=== PATIENT | male | born 1940 | race Caucasian/White ===

== ENCOUNTER 2018-09-07 15:27 | Inpatient (IN) ==
[2018-09-07] MEDS ORDERED: ASPIRIN ONE (15:48)
[2018-09-07] MEDS ORDERED: NITROGLYCERIN TOP ONE (15:58)
[2018-09-07] MEDS ORDERED: ASPIRIN PO ONE (16:06)
[2018-09-07 16:24] LABS: BASO# 0.02 X1000 (0.0-0.2); BASO% 0.2 % (0.0-0.8); EOS% 2.1 % (0.0-10.0); HEMATOCRIT 35.9 % (42.0-52.0); HEMOGLOBIN 11.7 g/dL (14.0-18.0); IMM GRAN# 0.01 X1000 (0.0-0.04); IMM GRAN% 0.1 % (0.0-0.5); LYMPH# 1.65 X1000 (1.2-3.4); LYMPH% 17.7 % (20.5-51.1); MCH 32.1 PG (27-31); MCHC 32.6 g/dL (33-37); MCV 98.4 FL (81-99); MONO# 1.14 X1000 (0.11-0.59); MONO% 12.2 % (1.7-9.3); MPV 9.6 FL (7.4-10.4); NEUT# 6.29 X1000 (1.4-6.5); NEUT% 67.7 % (42.2-75.2); PLT 281 X1000 (130-400); RBC 3.65 XMIL (4.7-6.1); RDW 14.7 % (11.5-14.5); WBC 9.31 X1000 (4.8-10.8)
[2018-09-07 16:34] LABS: INR 1.15; PROTIME 15.3 Seconds (11.0-16.0)
[2018-09-07 16:35] LABS: PTT 41.6 Seconds (22.3-41.8)
--- NOTE | 2018-09-07 16:42 | Diag Imaging Result Doc PS360 ---
EXAM: CHEST-PORTABLE - 09/07/2018 HISTORY: cp TECHNIQUE: Portable chest COMPARISON: 01/23/2017 FINDINGS: Heart size appears upper normal. There are sternal wires from previous surgery and transvenous cardiac pacemaker again seen. There is apparent interstitial fibrosis similar to prior. There is no dense consolidation, gross pulmonary edema, pleural effusion, or pneumothorax identified. IMPRESSION: Apparent interstitial fibrosis similar to prior. No other discrete acute changes. Electronically signed by Avery Hill 09/07/2018 4:40 PM
[2018-09-07 16:50] LABS: AGAP 11; ALBUMIN 3.7 g/dL (3.5-5.0); ALKALINE PHOSPHATASE 151 U/L (32-122); BUN 10 mg/dL (8-22); CALCIUM 9.3 mg/dL (8.8-10.2); CHLORIDE 107 mmol/L (98-107); CK PROFILE 173 U/L (24-204); COSMO 283; CREATININE 0.9 mg/dL (0.7-1.2); ESTIMATED GFR > 60; GLUCOSE 115 mg/dL (70-104); GOT 29 U/L (10-34); GPT 19 U/L (10-44); SODIUM 142 mmol/L (136-145); TCO2 25 mmol/L (25-35); TOTAL PROTEIN 6.8 g/dL (6.3-8.3)
--- NOTE | 2018-09-07 17:39 | EKG Report ---
Test Performed on : 09/07/2018 3:36:33 PM Test Reason : cp Blood Pressure : / mmHG Vent. Rate : 082 BPM Atrial Rate : 082 BPM P-R Int : 174 ms QRS Dur : 180 ms QT Int : 452 ms P-R-T Axes : 081 -52 113 degrees QTc Int : 528 ms Atrial-sensed ventricular-paced rhythm Abnormal ECG When compared with ECG of 23-JAN-2017 15:55, Vent. rate has increased BY 11 BPM Unconfirmed Result
--- NOTE | 2018-09-07 18:02 | PROVIDER DOCUMENTATION ---
This chart was entered by Galina Parra Scribe, acting as scribe for Christiano Conley MD. HPI-Chest Pain - General Chief Complaint: Chest Pain Stated Complaint: CHEST PAIN Time Seen by Provider: 09/07/18 15:46 Source: patient Allergies/Adverse Reactions: Patient Allergies Allergy/AdvReac Type Severity Reaction Status Date / Time No Known Allergies Allergy Verified 09/07/18 15:49 Home Medications: Home Medication List Medication Instructions Recorded Confirmed Last Taken Type Aspirin [Ecotrin] 81 mg PO DAILY 11/01/13 03/15/17 03/05/14 History Atorvastatin Calcium [Lipitor] 80 mg PO HS 11/01/13 03/15/17 03/05/14 History Isosorbide Mononitrate [Isosorbide 90 mg PO DAILY 11/01/13 04/28/17 03/05/14 History Mononitrate ER] Levothyroxine [Synthroid] 50 microgm PO DAILY 11/01/13 03/15/17 03/05/14 History Furosemide [Lasix] 80 mg PO DAILY 01/23/17 03/15/17 Unknown History Metoprolol Succinate E.r. [Toprol 1 tab PO DAILY 01/23/17 03/15/17 Unknown History Xl] Nitroglycerin [Nitrostat] 1 tab SL Q5M PRN PRN 01/23/17 03/15/17 01/23/17 12:30 History 0.4 Ticagrelor [Brilinta] 90 mg PO BID 03/15/17 03/15/17 Unknown History Ipratropium/Albuterol INH 1 inh IH Q4-6H PRN PRN 03/24/17 03/24/17 Unknown History [Combivent Respimat Inhaler] - History of Present Illness-CP Nature of Presenting Problem: 77 y/o male presents to ED with constant, heavy sternal chest pain, SOB, and nausea onset 3 hours ago. Pt reports he took 3 nitro at home and now his pain is better. Pt states he has had this pain almost every day for months. Pt is alert and oriented. Location: reports: other (sternal) Chest Pain Radiation: reports: no radiation Quality of Pain: reports: pressure Severity in ED: moderate Onset/Duration: 4-6 hours ago Timing: still present, improving Context/Activities at Onset: reports: none Modifying Factors: improves with: other medication (nitro) Associated Symptoms: reports: nausea, shortness of breath Nitro Today/Relief: 0.4 mg x 3, provided at home, mild relief Aspirin Treatment Today: 325 mg x 1, provided by ED Prior Chest Pain/Cardiac Workup: reports: angina, cardiac cath Similar Symptoms Previously?: Yes Recently Seen Here or By Another Healthcare Provider: No Review of Systems - Adult - REVIEW OF SYSTEMS - ADULT Constitutional: denies: chills, fever Eyes: reports: no symptoms reported Ears, Nose, Mouth & Throat: reports: no symptoms reported Cardiovascular: reports: chest pain. denies: palpitations Respiratory: reports: shortness of breath. denies: cough Gastrointestinal: reports: nausea. denies: abdominal pain, diarrhea, vomiting Genitourinary: reports: no symptoms reported Musculoskeletal: denies: back pain, joint pain Integumentary: reports: no symptoms reported Neurological: denies: dizziness/vertigo, seizure Psychiatric: reports: no symptoms reported Endocrine: reports: no symptoms reported Hematologic/Lymphatic: reports: no symptoms reported Allergic/Immunologic: reports: no symptoms reported All Other Systems: Reviewed and Negative Past History - Adult - PAST MEDICAL HISTORY-ADULT Review of Records: reports: Old Records Reviewed, Nursing Assessment Review, Medications Reviewed 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") Endocrine/Immune: reports: thyroid disorder (hypothyroid) Other Conditions: reports: denies history - PRIOR SURGERIES/PROCEDURES Surgical/Procedure History: reports: CABG, cholecystectomy, cardiac stent, pacemaker, other (bypass, carotid, open heart) - PRIOR HOSPITALIZATIONS Prior Hospitalizations: reports: for other non-related - IMMUNIZATION STATUS Childhood Immunizations: See Nurse Assessment Flu Vaccine: See Nurse Assessment - FAMILY HISTORY Family History: reviewed, not pertinent - SOCIAL HISTORY Smoking: quit greater than 1 year Substance Use: none/never Alcohol Use Frequency: never Living Situation: family Physical Exam-General - PHYSICAL EXAM-ADULT Initial Vital Signs Reviewed: Yes - CONSTITUTIONAL General Appearance: appears well, alert, no apparent distress - EYES Eyes: PERRL/EOMI, pink conjunctivae - HEAD, EARS, NOSE, MOUTH & THROAT HENMT: normocephalic/atraumatic, moist mucous membranes, normal ENT inspection - NECK Neck: non-tender, full range of motion - RESPIRATORY Respiratory: chest non-tender, lungs clear, normal breath sounds - CARDIOVASCULAR Cardiovascular: normal peripheral pulses, regular rate, rhythm - GASTROINTESTINAL (ABDOMEN) Abdominal Exam: normal bowel sounds, non tender, soft - MUSCULOSKELETAL Back Exam: normal inspection, no CVA tenderness Extremity: normal range of motion, non-tender, normal gait - SKIN Integumentary: normal color, warm/dry - NEUROLOGIC Neurologic: grossly normal - PSYCHIATRIC Psych/Mental Status: normal mood/affect, normal thought content, normal thought process Progress - PLAN OF CARE/RESULTS Progress/Plan/Lab Results: Vital Signs - 8 hr 09/07/18 15:30 09/07/18 17:51 Temperature 98.2 F Pulse Rate 83 65 Respiratory Rate 20 18 Blood Pressure 103/65 106/68 O2 Sat by Pulse Oximetry 92 L 93 L Laboratory Results - last 24 hr 09/07/18 09/07/18 09/07/18 16:00 16:00 16:00 WBC 9.31 RBC 3.65 L Hgb 11.7 L Hct 35.9 L MCV 98.4 MCH 32.1 H MCHC 32.6 L RDW Std Deviation 14.7 H Plt Count 281 MPV 9.6 Immature Gran % (Auto) 0.1 Neut % (Auto) 67.7 Lymph % (Auto) 17.7 L Andrew % (Auto) 12.2 H Eos % (Auto) 2.1 Baso % (Auto) 0.2 Immature Gran # (Auto) 0.01 Neut # (Auto) 6.29 Lymph # (Auto) 1.65 Andrew # (Auto) 1.14 H Eos # (Auto) 0.20 Baso # (Auto) 0.02 PT INR PTT (Actin FS) Sodium 142 Potassium 4.0 Chloride 107 Carbon Dioxide 25 Anion Gap 11 BUN 10 Creatinine 0.9 Estimated GFR/1.73 m2 > 60 BUN/Creatinine Ratio 11 Glucose 115 H Calculated Osmolality 283 Calcium 9.3 Magnesium 2.0 Total Bilirubin 0.90 AST 29 ALT 19 Alkaline Phosphatase 151 H Creatine Kinase 173 Troponin T Wuz-G-Duaozapfecr Pept 1006 H Total Protein 6.8 Albumin 3.7 Globulin 3.0 Albumin/Globulin Ratio 1.0 09/07/18 09/07/18 09/07/18 16:00 16:00 17:30 WBC RBC Hgb Hct MCV MCH MCHC RDW Std Deviation Plt Count MPV Immature Gran % (Auto) Neut % (Auto) Lymph % (Auto) Andrew % (Auto) Eos % (Auto) Baso % (Auto) Immature Gran # (Auto) Neut # (Auto) Lymph # (Auto) Andrew # (Auto) Eos # (Auto) Baso # (Auto) PT 15.3 INR 1.15 PTT (Actin FS) 41.6 Sodium Potassium Chloride Carbon Dioxide Anion Gap BUN Creatinine Estimated GFR/1.73 m2 BUN/Creatinine Ratio Glucose Calculated Osmolality Calcium Magnesium Total Bilirubin AST ALT Alkaline Phosphatase Creatine Kinase Troponin T 0.062 0.193 H D Zvb-U-Dsxodzxidec Pept Total Protein Albumin Globulin Albumin/Globulin Ratio Orders Category Date Time Status Oxygen Therapy- ED Nursing DIRECTED Care 09/07/18 16:08 Active Saline Loc NOW Care 09/07/18 15:57 Active CHEST-PORTABLE [RAD] Stat Exams 09/07/18 15:58 Completed CBC WITH ELECTRONIC DIFF [HEME] Stat Lab 09/07/18 16:00 Completed CK PROFILE [SP CHEM] Stat Lab 09/07/18 16:00 Completed COMPREHENSIVE METABOLIC PANEL [CHEM] Stat Lab 09/07/18 16:00 Completed MAGNESIUM [CHEM] Stat Lab 09/07/18 16:00 Completed PRO B-NATRIURETIC PEPTIDE Stat Lab 09/07/18 16:00 Completed PROTIME WITH INR [COAG] Stat Lab 09/07/18 16:00 Completed PTT [COAG] Stat Lab 09/07/18 16:00 Completed TROPONIN T Stat Lab 09/07/18 16:00 Completed TROPONIN T Stat Lab 09/07/18 17:30 Completed Aspirin Med 09/07/18 15:48 Discontinued 325 mg .ROUTE .STK-MED ONE Aspirin Med 09/07/18 16:06 Discontinued 325 mg PO NOW ONE Enoxaparin 1 mg/kg [Lovenox 1 mg/kg] Med 09/07/18 18:26 Discontinued 1 each SUBQ NOW ONE Nitroglycerin Med 09/07/18 15:58 Discontinued 1 inch TOP NOW ONE EKG [EKG] Stat Ther 09/07/18 15:57 Draft EKG [EKG] Stat Ther 09/07/18 17:04 Ordered Transfer/Admit Order [TRANSFER] Routine Transfer 09/07/18 18:32 Ordered HEART SCORE OF 8. [id number] - HIGH RISK of MACE, needs admit Result Diagrams: 09/07/18 16:00 09/07/18 16:00 - REASSESSMENT Reassessment #1 Time Reassessed: 17:12 Status: improving (Chest pain free at this time. Will repeat troponin and call cardiology prior to admit or transfer.) - EKG 1 Time of EKG reading by physician:: 15:36 EKG Read and Signed by:: Christiano Conley EKG Interpretation (*Must complete 3 of following elements*): Abnormal Rate: 82 Rhythm: Atrial-sensed ventricular-paced rhythm [place]: normal QRS: other (wide complex) [place] Interval: normal ST Wave: normal 2 Time of EKG reading by physician:: 17:37 EKG Read and Signed by:: Christiano Conley EKG Interpretation (*Must complete 3 of following elements*): Abnormal Rate: 63 Rhythm: Atrial-sensed ventricular-paced rhythm [place]: normal QRS: normal [place] Interval: normal ST Wave: normal Prior EKG Comparison: unchanged from prior - XRAY 1 XRAY Study: Chest Impression: Abnormal (FINDINGS: Heart size appears upper normal. There are sternal wires from previous surgery and transvenous cardiac pacemaker again seen. There is apparent interstitial fibrosis similar to prior. There is no dense consolidation, gross pulmonary edema, pleural effusion, or pneumothorax identified. IMPRESSION: Apparent interstitial fibrosis similar to prior. No other discrete acute changes. Electronically signed by Avery Hill 2018 4:40 PM) - CONSULTS/PCP/HOSPITALIST Notification #1 *Consult/PCP/Hospitalist*: Blaise Motley Time Discussed: 18:33 (give lovenox, hold here and tranfer tomorrow if a bed opens) Reason/Comments: Cebolla is currently on divert for us Consult Disposition: other #2 Consult: stanley Time Discussed: 18:34 Consult Disposition: Will see in ED Departure - Departure Date of Disposition Decision: 09/07/18 Time of Disposition Decision: 18:34 DIAGNOSIS: NSTEMI, initial episode of care Disposition: ADMITTED INPATIENT 09 Certified Medical Emergency: Emergent Condition: Fair Referrals and Follow-Ups: Bubba Shepard MD [Primary Care Provider] - - Critical Care Note This patient required my direct & personal management of CC.: Yes Total Time (mins): 45 Critical Care Statement: This patient required my direct personal management to treat or rule out processes, the absence of which, could potentiallly result in sudden, clinically significant life or limb threatening deterioration. Attestation - Physician/ YAKELIN Attestation Patient care was provided by Advanced Practice Provider:: No The physician spent face to face time with patient:: Yes Advanced Practice Provider documentation review:: Supervising physician onsite and consulted in the evaluation and care of this patient. The physician did have a face to face encounter with the patient. This chart was documented by the indicated scribe, (Galina Parra, Scrshad) and accurately reflects the services I performed and decisions made by me, Christiano Conley MD, as attested by the provider's signature.
[2018-09-07] MEDS ORDERED: LOVENOX 1 MG/KG SUBQ ONE (18:26)
[2018-09-07] MEDS ORDERED: LOVENOX ONE (18:35)
[2018-09-07] MEDS ORDERED: BRILINTA PO SCH (22:31)
[2018-09-07] MEDS ORDERED: ZOFRAN IV PRN (22:31)
[2018-09-07] MEDS ORDERED: NS 1,000 ML IV ONE (22:31)
[2018-09-07] MEDS ORDERED: TYLENOL PO PRN (22:31)
[2018-09-07] MEDS ORDERED: LIPITOR PO SCH (22:31)
[2018-09-07] MEDS ORDERED: LOVENOX 1 MG/KG SUBQ SCH (22:31)
[2018-09-07] MEDS: NITROGLYCERIN TOP SCH (23:19)
[2018-09-08] MEDS: MORPHINE IV PRN ×2 (00:26→06:42)
--- NOTE | 2018-09-08 05:31 | CARDIOLOGY CONSULTATION ---
DATE: 09/07/2018 INDICATIONS: Chest pain. HISTORY OF PRESENT ILLNESS: Mr. Arreguin is a 77-year-old gentleman with a history of coronary artery disease normally followed by Dr. Shepard in [place]. He had last seen Dr. Shepard in July and at that time was recommended for a heart catheterization based on his continued symptoms. The patient takes care of his , who is somewhat bedbound, and so was unable to do so. He presented for evaluation of chest pain that began around 1 p.m. today while he was in the grocery store. It persisted for around 3 hours and was a pressure heaviness in the mid chest that hurt quite a bit. It was associated with nausea, but no vomiting. He was short of breath with the episode as well. This is consistent with previous episodes. No other provokers or palliators. PAST MEDICAL HISTORY: Significant for: 1. Coronary disease with coronary bypass. 2. Hyperlipidemia. 3. Hypertension. SOCIAL HISTORY: He does not smoke. He is . FAMILY HISTORY: Hypertension. REVIEW OF SYSTEMS: A 10-system review of systems is negative except for those things mentioned in HPI. PHYSICAL EXAMINATION: Vital signs: He is afebrile. Heart rate is 89, blood pressure 107/79. General: He is in no acute distress. He is not currently having pain. HEENT: Oropharynx is moist. Normal dentition. Eye examination with pink conjunctivae and white sclerae. Neck: Neck examination demonstrated bilateral carotid bruits. No obvious thyromegaly or thyroid tenderness. Cardiovascular: He is in a regular rate and rhythm. He has no murmurs, no S3. No lower extremity edema. Chest: Exam is clear bilaterally. He has no increased work of breathing. Abdomen: Soft, nontender, nondistended. No obvious organomegaly. Skin Exam: Warm and dry throughout without any rashes. Neurological: Nonfocal, nonlateralizing. Psychiatric: Alert, oriented, pleasant. Normal mood and affect. PERTINENT DATA: He had an EKG checked this hospitalization, which demonstrated a baseline atrial fibrillation. He appeared to be in sinus rhythm. He has a known left bundle. Chest x-ray demonstrated interstitial fibrosis. No acute changes from old. White count 9.3, hematocrit 35, platelet count 281,000. INR 1.1. Sodium 142, potassium 4, BUN 10, creatinine 0.9. ProBNP is 1006. Troponin 0.193. ASSESSMENT: Mr. Arreguin is a 77-year-old gentleman with history of coronary disease. PLAN: He appears to have had a [id number]-BE-[id number] DC. He is pain-free presently. I would continue with the treatment as you have it, with Lovenox, aspirin, and nitroglycerin. He had re-initiation of his Brilinta as well as statin therapy. In addition, I would try to re-initiate his beta- raisa. I would recommend transfer to a PCI facility in the morning. He certainly seems stable at present, but if he demonstrates any sort of instability overnight, would recommend emergent transfer. cc: MD Sean Moy MD
[2018-09-08] MEDS ORDERED: LOVENOX SUBQ SCH (06:00)
[2018-09-08] MEDS: NITROGLYCERIN TOP SCH (06:42)
[2018-09-08] MEDS ORDERED: TOPROL XL PO SCH (09:00)
[2018-09-08] MEDS ORDERED: ASPIRIN EC PO SCH (09:00)
[2018-09-08] MEDS ORDERED: NITROGLYCERIN SL PRN (10:06)
[2018-09-08] MEDS ORDERED: DUONEB (A & A) INH PRN (10:15)
[2018-09-08 10:39] VITALS: BP 100/63
--- NOTE | 2018-09-08 11:40 | HISTORY AND PHYSICAL ---
ADMISSION DIAGNOSIS: Chest pain. HISTORY OF PRESENT ILLNESS: Pt was seen on the evening of 09/07/18 in ER .This is a 77-year-old male with known CAD, status post CABG stents. His last intervention I think was over a year ago. He states starting around 1 p.m. he had substernal chest pain radiating to his left arm, back and into his right shoulder, associated with shortness of breath. No nausea. Not completely similar to previous events, but was still apparent. He came in for evaluation. Has improved with nitroglycerin. Workup in the ER. EKG showed, I do not think any acute changes. Actually, he is ventricularly paced and therefore EKG is not interpretable in the setting of ischemic changes. Chest x-ray showed interstitial fibrosis. When I saw him in the evening around 1900, he was chest pain free. However, his troponin was elevated. His first one was not. His second one about an hour and a half later was with a normal CK and then his troponin continued to increase. The patient was felt to have a non- STEMI. Cardiology was consulted, Dr. Blaise Motley. However, because of bed availability, there were no beds at [facility]. The patient had to be monitored here until a bed was available. PAST MEDICAL HISTORY: 1. Again CABG. That was about 4-5 years ago. 2. He has also had PCI, which was done about a year ago. 3. Hyperlipidemia. 4. Hypertension. 5. Hypothyroid. 6. Presumably atrial fibrillation. He is on Eliquis. PAST SURGICAL HISTORY: The CABG and PCI. No other major things. SOCIAL HISTORY: No smoking. . Family is involved. He is retired from construction work. He has a remote history of smoking. I think he quit 10 or 12 years ago. FAMILY HISTORY: Hypertension, but I want to say he had CAD. His father had CAD , but later after his 60s. ALLERGIES: No known drug allergies. MEDICATIONS: He currently takes nitroglycerin p.r.n., Eliquis 5 b.i.d., aspirin 81 daily, Lipitor 80 daily, Lasix 80 daily. Atrovent, Imdur 90 daily, Synthroid 50 daily, Toprol- XL 50 daily, Klor- Con 20 daily, and Brilinta 90 b.i.d. REVIEW OF SYSTEMS: General: No weight loss, appetite change. Cardiovascular : As described. Pulmonary: As described. GI: No nausea, vomiting, diarrhea. No bleeding. No hematochezia, no melena. : No dysuria. No urinary retention. Otherwise negative times a 10 point review of systems. PHYSICAL EXAMINATION: VITAL SIGNS: Blood pressure was 107/79, heart rate 89, respiratory rate 18, temperature 97.9, 97% on 2 L. GENERAL: Well-developed male in no acute distress. HEENT: Head exam was normocephalic, atraumatic. Eye exam: Pupils equal, round , reactive to light. Extraocular movements are intact. Ear, nose and throat exam: Moist mucous membranes. NECK: Supple. CARDIOVASCULAR: Regular rate and rhythm. No murmurs, gallops, or rubs. PULMONARY: Exam, bilateral breath sounds clear to auscultation. GI: Was soft, nontender, nondistended. Bowel sounds are positive. EXTREMITY EXAM: No clubbing or cyanosis. LYMPHATIC EXAM: No peripheral edema. NEUROLOGICAL: Nonfocal. MUSCULOSKELETAL: 4/5 in all 4 extremities. SKIN EXAM: Was warm. No rashes noted. LABORATORY DATA: Hemoglobin and hematocrit 11 and 35. Platelets were normal. Coag profile normal. Chemistries were okay. ProBNP 1006. Troponin 0.193. EKG, ventricularly paced. Chest x- ray clear. ASSESSMENT AND PLAN: A 77-year-old white male with history of coronary artery disease status post coronary artery bypass graft, percutaneous coronary intervention, and now with Non ST-elevation myocardial infarction. 1. Non ST-elevation myocardial infarction. We will continue aggressive medical management, beta blockers, anticoagulation with Lovenox, although he has already been on Eliquis. Blood pressure control, nitroglycerin, pain control, and we will follow clinically. Plan will be to get to percutaneous coronary intervention once available. Cardiology has evaluated patient, Dr. Blaise Motley. Unfortunately, there are no beds available at any of the local facilities for intervention. We will continue to aggressively pursue that within the next 24 hours. 2. Hypothyroidism. Continue his regular medications. Check a TSH. 3. Hyperlipidemia. We will continue to monitor closely. This is a patient of Dr. Bubba Shepard. I am not sure who is primary care provider is. In any case, patient is stable. We will continue to follow. Appreciate treatment. Also of note, he has had a recent gallbladder removal. I think there was some concern over possible need for intervention. cc: Sean Chapa MD MTDD
--- NOTE | 2018-09-08 14:46 | EKG Report ---
Test Performed on : 09/07/2018 5:37:43 PM Test Reason : ER Blood Pressure : / mmHG Vent. Rate : 063 BPM Atrial Rate : 063 BPM P-R Int : 194 ms QRS Dur : 180 ms QT Int : 502 ms P-R-T Axes : 073 -56 123 degrees QTc Int : 513 ms Atrial-sensed ventricular-paced rhythm Abnormal ECG When compared with ECG of 07-SEP-2018 17:37, (Unconfirmed) Electronic ventricular pacemaker has replaced Sinus rhythm. Unconfirmed Result
--- NOTE | 2018-09-08 15:15 | EKG Report ---
Test Performed on : 09/08/2018 11:03:34 AM Test Reason : Repeat Blood Pressure : / mmHG Vent. Rate : 077 BPM Atrial Rate : 077 BPM P-R Int : 180 ms QRS Dur : 176 ms QT Int : 466 ms P-R-T Axes : 077 -60 105 degrees QTc Int : 527 ms Atrial-sensed ventricular-paced rhythm Abnormal ECG When compared with ECG of 07-SEP-2018 15:36, (Unconfirmed) Vent. rate has decreased BY 5 BPM Unconfirmed Result
[2018-09-09] MEDS ORDERED: SYNTHROID PO SCH (07:00)
[2018-09-09] MEDS ORDERED: LASIX PO SCH (09:00)
--- NOTE | 2018-09-11 08:52 | DISCHARGE SUMMARY ---
ADMISSION DATE: 09/07/2018 DISCHARGE DATE: 09/08/2018 HISTORY AND HOSPITAL COURSE: The patient is doing okay. is stable currently. He has a [id number] [place]. Plan was to transfer him to facility amenable to PSI. Unfortunately, because of no bed availability at [facility] or [facility], we eventually reached down to [facility] with an intermittent interventional program and were able to transfer him there for catheterization and evaluation. The patient is currently chest pain free and doing well. Further care will be per discharge per Cardiology Service there. Dr. Motley had evaluated the patient. He has been maintained on Lovenox and aspirin. DISCHARGE MEDICATIONS: Medications at time of discharge are his home medications including aspirin and enoxaparin. His last troponin that was positive was 0.329. DISCHARGE DIAGNOSIS: Vub-DI-rarwywuxm myocardial infarction. TIME SPENT: A 35-minute discharge for managing transfer to another facility. cc: Sean Chapa MD
== END 2018-09-08 11:13 | disposition short-term general hospital (02) | DRG 282 ==
LOC: P.ED 15:27 → P.DIRADM 18:34 → EDIPHOLD 23:03 → P.DIRADM 09-08 07:29 → P.EDIPHOLD 09-08 11:13 → P.ED 09-08 11:13
PROVIDERS: ADMIT Internal Medicine; ATTEND Internal Medicine
CPT/HCPCS: 71010; 71045; 80053; 82550; 83735; 83880; 84484; 85025; 85610; 85730; 93005; 96372; 96374; 96376; 99285; A9270; J1650; J2270; J7030

== ENCOUNTER 2018-09-22 15:07 | Inpatient (IN) ==
[2018-09-22 16:00] LABS: BASO# 0.04 X1000 (0.0-0.2); BASO% 0.4 % (0.0-0.8); EOS# 0.41 X1000 (0.0-0.7); EOS% 3.7 % (0.0-10.0); HEMATOCRIT 31.8 % (42.0-52.0); HEMOGLOBIN 10.1 g/dL (14.0-18.0); IMM GRAN# 0.07 X1000 (0.0-0.04); IMM GRAN% 0.6 % (0.0-0.5); LYMPH# 3.28 X1000 (1.2-3.4); LYMPH% 29.8 % (20.5-51.1); MCH 31.4 PG (27-31); MCHC 31.8 g/dL (33-37); MCV 98.8 FL (81-99); MONO# 1.13 X1000 (0.11-0.59); MONO% 10.3 % (1.7-9.3); MPV 9.4 FL (7.4-10.4); NEUT# 6.06 X1000 (1.4-6.5); NEUT% 55.2 % (42.2-75.2); PLT 333 X1000 (130-400); RBC 3.22 XMIL (4.7-6.1); RDW 14.9 % (11.5-14.5); WBC 10.99 X1000 (4.8-10.8)
[2018-09-22 16:16] LABS: INR 1.51
[2018-09-22 16:17] LABS: PTT 44.8 Seconds (22.3-41.8)
[2018-09-22 16:18] LABS: ALBUMIN 3.6 g/dL (3.5-5.0); CREATININE 1.2 mg/dL (0.7-1.2); POTASSIUM 4.6 mmol/L (3.5-5.1); TOTAL PROTEIN 6.8 g/dL (6.3-8.3)
--- NOTE | 2018-09-22 16:33 | PROVIDER DOCUMENTATION ---
HPI-Abdominal Pain/GI Problem - General Chief Complaint: GI Bleed Stated Complaint: BLACK STOOLS Time Seen by Provider: 09/22/18 16:03 Source: patient Allergies/Adverse Reactions: Patient Allergies Allergy/AdvReac Type Severity Reaction Status Date / Time No Known Allergies Allergy Verified 09/22/18 15:25 Home Medications: Home Medication List Medication Instructions Recorded Confirmed Last Taken Type Atorvastatin Calcium [Lipitor] 80 mg PO HS 11/01/13 09/22/18 03/05/14 History Isosorbide Mononitrate [Isosorbide 90 mg PO DAILY 11/01/13 09/22/18 03/05/14 History Mononitrate ER] Levothyroxine [Synthroid] 50 microgm PO DAILY 11/01/13 09/22/18 03/05/14 History Furosemide [Lasix] 80 mg PO DAILY 01/23/17 09/22/18 Unknown History Metoprolol Succinate E.r. [Toprol 1 tab PO DAILY 01/23/17 09/22/18 Unknown History Xl] Nitroglycerin [Nitrostat] 1 tab SL Q5M PRN PRN 01/23/17 09/22/18 01/23/17 12:30 History 0.4 Ticagrelor [Brilinta] 90 mg PO BID 03/15/17 09/22/18 Unknown History Ipratropium/Albuterol INH 1 inh IH Q4-6H PRN PRN 03/24/17 09/22/18 Unknown History [Combivent Respimat Inhaler] Apixaban [Eliquis] 5 mg PO BID 09/07/18 09/22/18 Unknown History Aspirin [Aspir-Low] 81 mg PO DAILY 09/07/18 09/22/18 Unknown History Potassium Chloride 1 tab PO DAILY 09/07/18 09/22/18 Unknown History - History of Present Illness-ABD Nature of Presenting Problems: pt is 77 yo male w PMH including IA 2 weeks ago with heart cath who reports dark loose stools x 1.5 weeks with increased weakness, pt is currently taking elliquis , pt denies pain , n/v, fevers, CP, dizziness, syncope, or any other sx at this time. Modifying Factors: improves with: nothing Last BM: this afternoon Dark Stools Present?: reports: black Rectal Bleeding: reports: none Rectal Pain: reports: none Emesis Description: reports: none Bruising or Bleeding Gums?: No Similar Symptoms Previously?: Yes Recently seen or treated by another doctor?: Yes (seen by PCP and referred to ED ) Review of Systems - Adult - REVIEW OF SYSTEMS - ADULT Constitutional: reports: see HPI, fatique Eyes: reports: no symptoms reported Ears, Nose, Mouth & Throat: reports: no symptoms reported Cardiovascular: reports: no symptoms reported Respiratory: reports: no symptoms reported Gastrointestinal: reports: see HPI Genitourinary: reports: no symptoms reported Musculoskeletal: reports: no symptoms reported Integumentary: reports: no symptoms reported Neurological: reports: no symptoms reported Psychiatric: reports: no symptoms reported Endocrine: reports: no symptoms reported Hematologic/Lymphatic: reports: no symptoms reported Allergic/Immunologic: reports: no symptoms reported All Other Systems: Reviewed and Negative Past History - Adult - PAST MEDICAL HISTORY-ADULT Review of Records: reports: Old Records Reviewed, Nursing Assessment Review, Medications Reviewed 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") Endocrine/Immune: reports: thyroid disorder (hypothyroid) Other Conditions: reports: denies history - PRIOR SURGERIES/PROCEDURES Surgical/Procedure History: reports: CABG, cholecystectomy, cardiac stent, pacemaker, other (bypass, carotid, open heart) - PRIOR HOSPITALIZATIONS Prior Hospitalizations: reports: for other non-related Hospitalization Comment: had cardiac stents 2 weeks ago - IMMUNIZATION STATUS Childhood Immunizations: See Nurse Assessment Flu Vaccine: See Nurse Assessment - FAMILY HISTORY Family History: reviewed, not pertinent - SOCIAL HISTORY Smoking: quit greater than 1 year Substance Use: none/never Alcohol Use Frequency: never Physical Exam-General - PHYSICAL EXAM-ADULT Initial Vital Signs Reviewed: Yes - CONSTITUTIONAL General Appearance: appears well, alert, no apparent distress - EYES Eyes: PERRL/EOMI, pink conjunctivae. negative: anisocoria, pale conjunctivae, photophobia, sclera injected, scleral icterus - HEAD, EARS, NOSE, MOUTH & THROAT HENMT: normocephalic/atraumatic, moist mucous membranes - NECK Neck: non-tender, full range of motion, supple - RESPIRATORY Respiratory: chest non-tender, lungs clear, normal breath sounds, no pleuratic chest pain, no respiratory distress, no accessory muscle use - CARDIOVASCULAR Cardiovascular: normal peripheral pulses, regular rate, rhythm, no edema, no gallop, no JVD, no murmur - GASTROINTESTINAL (ABDOMEN) Abdominal Exam: normal bowel sounds, non tender, soft - LYMPHATIC Lymphatic: no adenopathy - MUSCULOSKELETAL Back Exam: normal inspection Extremity: normal range of motion, non-tender, normal gait - SKIN Integumentary: normal color, normal turgor, warm/dry - NEUROLOGIC Neurologic: grossly normal, no motor/sensory deficits. negative: facial droop, focal weakness, motor weakness, sensory deficit - PSYCHIATRIC Psych/Mental Status: normal mood/affect, normal thought content, normal thought process, oriented x 3 Progress - PLAN OF CARE/RESULTS Progress/Plan/Lab Results: Vital Signs - 8 hr 09/22/18 15:20 Temperature 97.4 F L Pulse Rate 61 Respiratory Rate 20 Blood Pressure 92/54 O2 Sat by Pulse Oximetry 100 Laboratory Results - last 24 hr 09/22/18 09/22/18 09/22/18 15:44 15:44 15:44 WBC 10.99 H RBC 3.22 L Hgb 10.1 L Hct 31.8 L MCV 98.8 MCH 31.4 H MCHC 31.8 L RDW Std Deviation 14.9 H Plt Count 333 MPV 9.4 Immature Gran % (Auto) 0.6 H Neut % (Auto) 55.2 Lymph % (Auto) 29.8 Hitchcock % (Auto) 10.3 H Eos % (Auto) 3.7 Baso % (Auto) 0.4 Immature Gran # (Auto) 0.07 H Neut # (Auto) 6.06 Lymph # (Auto) 3.28 Hitchcock # (Auto) 1.13 H Eos # (Auto) 0.41 Baso # (Auto) 0.04 PT 19.0 H INR 1.51 PTT (Actin FS) 44.8 H Sodium 137 Potassium 4.6 Chloride 103 Carbon Dioxide 23 L Anion Gap 11 BUN 29 H Creatinine 1.2 Estimated GFR/1.73 m2 59 BUN/Creatinine Ratio 24 Glucose 103 Calculated Osmolality 280 Calcium 9.0 Total Bilirubin 1.00 AST 26 ALT 27 Alkaline Phosphatase 121 Total Protein 6.8 Albumin 3.6 Globulin 3.0 Albumin/Globulin Ratio 1.0 Orders Category Date Time Status Saline Loc NOW Care 01/18/19 15:47 Completed CBC WITH DIFF [HEME] Stat Lab 09/22/18 15:44 Completed CMP [COMPREHENSIVE METABOLIC PANEL] [CHEM] Stat Lab 09/22/18 15:44 Completed OCCULT BLOOD SCREENING [STOOL] Stat Lab 09/22/18 16:14 Uncollected PROTIME WITH INR [COAG] Stat Lab 09/22/18 15:44 Completed PTT [COAG] Stat Lab 09/22/18 15:44 Completed TYPE & SCREEN [BBK] Stat Lab 09/22/18 15:44 Results Discussed with patient that he would be admitted for further evaluation at [facility], pt verbalized understanding and agreed with POC. Result Diagrams: 09/23/18 14:15 09/23/18 05:30 Departure - Departure Date of Disposition Decision: 09/22/18 Time of Disposition Decision: 17:33 DIAGNOSIS: GI bleed Disposition: ADMITTED INPATIENT 09 Certified Medical Emergency: Emergent Condition: Stable - Critical Care Note This patient required my direct & personal management of CC.: No Attestation - Physician/ YAKELIN Attestation Patient care was provided by Advanced Practice Provider:: Yes Advanced Practice Provider:: Mary Beth Ward Advanced Practice Provider documentation review:: The Mid-level provider documentation, treatment plan and medical decision making was reviewed by the physician who agrees with all treatment and medical decision making by the MLP. The physician spent face to face time with patient:: Yes Advanced Practice Provider documentation review:: Supervising physician onsite and consulted in the evaluation and care of this patient. The physician did have a face to face encounter with the patient.
[2018-09-22 16:52] LABS: OCCULT BLOOD 1 POSITIVE (NEGATIVE)
[2018-09-22] MEDS ORDERED: SODIUM CHLORIDE 0.9% INJ ONE (17:49)
[2018-09-22] MEDS ORDERED: PROTONIX IV ONE (17:49)
[2018-09-22] MEDS ORDERED: ZOFRAN IV PRN (23:46)
--- NOTE | 2018-09-23 01:13 | HISTORY AND PHYSICAL ---
PRIMARY CARE PHYSICIAN: Dr. Renteria. CHIEF COMPLAINT: Increased weakness and dark tarry stools for approximately a week and a half. HISTORY OF PRESENTING ILLNESS: This is a 77-year-old male who presents to [facility], stating that he had an MA approximately 2 weeks ago, and a heart catheterization. Was placed on Eliquis, and over about the past week and a half, he has had increasing weakness and dark loose stools. His workup in the emergency room showed a hemoglobin and hematocrit of 10.1 and 31.8. His stool for occult blood was positive, so he will be admitted to the [facility] for further evaluation and treatment. PAST MEDICAL HISTORY: An MA 2 weeks ago, hypertension, hyperlipidemia, COPD, CVA, hypothyroidism. PAST SURGICAL HISTORY: CABG, cholecystectomy, heart stent placement, pacemaker. FAMILY HISTORY: Reviewed and noncontributory. SOCIAL HISTORY: He currently lives with his . Denies any tobacco, alcohol, or illicit drug use. ALLERGIES: He has no known drug allergies. HOME MEDICATIONS: A current list will need to be obtained and restarted as appropriate. Of course, we would hold the Eliquis after they are confirmed, but at this time, I will place an order for nursing to update and confirm medications. LABORATORY DATA: Showed a white blood cell count of 10.99, hemoglobin 10.1, hematocrit 31.8, platelets 333,000. PT and INR of 19 and 1.51. Sodium 137, potassium 4.6, chloride 103, CO2 23, BUN of 29, creatinine 1.2, glucose 103. Stool for occult blood was positive. REVIEW OF SYSTEMS: He denied any fever, chills, blurred vision, dizziness. He was positive for generalized weakness. Denied any chest pain, coughing, shortness of breath. He was positive for some black tarry stools, but denied any abdominal pain, constipation, diarrhea, burning, or hurting with urination. PHYSICAL EXAMINATION: VITAL SIGNS: On arrival, he had a temperature of 97.4 degrees, pulse 61, respirations 20, blood pressure was 92/54, saturating 100% on room air. GENERAL: This is a 77-year-old male, who is lying in the bed, and answers questions appropriately. HEENT: Normocephalic, atraumatic. Normal ENT inspection. Oropharynx and nares are clear. EYES: Pupils are equal, round, reactive to light and accommodation. Extraocular movements are intact. NECK: Normal inspection. Normal range of motion. LUNGS: Clear to auscultation bilaterally, with equal lung expansion and chest wall movement. HEART: Regular rate and rhythm. No murmurs, rubs, or gallops. ABDOMEN: Soft, nontender, nondistended. Bowel sounds are present x4 quadrants. MUSCULOSKELETAL: He has 5/5 strength x4 extremities. NEUROLOGICAL: Cranial nerves 2-12 appear grossly intact. ASSESSMENT: 1. Gastrointestinal bleed, most likely secondary to being recently placed on Eliquis. 2. Generalized weakness. 3. Myocardial infarction 2 weeks ago, with heart stent placement. 4. Hypotension. PLAN: He will be transferred to the [facility], placed on telemetry, healthy heart diet. We will place him on Protonix 40 mg IV daily. We will do serial hemoglobin and hematocrit q.6 x3. We will consult GI. There is an order for nursing to update and confirm home medications, and of course we will hold his Eliquis once that is confirmed. He will be on normal saline at 75 mL an hour now. Further orders after being seen by attending and consultation. Dictated by JOSE Thurston for Obey Lambert MD cc: JOSE Thurston MD Stephen A. Branning, MD
[2018-09-23 02:14] LABS: HEMATOCRIT 32.3 % (42.0-52.0); HEMOGLOBIN 10.6 g/dL (14.0-18.0)
[2018-09-23] MEDS: NS 1,000 ML IV SCH ×2 (02:16→15:51)
[2018-09-23] MEDS: PROTONIX IV SCH ×3 (02:17→20:38)
--- NOTE | 2018-09-23 04:56 | HISTORY AND PHYSICAL ---
HISTORY AND PHYSICAL ADDENDUM: Patient seen and examined by me face to face. All the laboratory and vital signs were reviewed. The patient presented to the emergency department with a chief complaint of dark/black stools. This apparently has been happening for the past [id number]. The stool is loose. He has been complaining also of weakness. It looks like this patient has been on Eliquis, and also aspirin and Brilinta. Everything has been stopped together, and he will be transferred to [facility] so he can be evaluated by Gastroenterology Department. Vital signs are stable. Pulse is 65, respiratory rate 18, blood pressure 107/53, oxygen saturation 97% on room air. He is not complaining of chest pain or shortness of breath. No dizziness, no nausea, no vomiting. Mild epigastric discomfort upon palpation. No lower extremity edema. He will be placed on pantoprazole. I agree with the rest of the nurse practitioner's assessment and plan. cc: Obey Lambert MD
[2018-09-23 06:08] LABS: CALCIUM 8.5 mg/dL (8.8-10.2); CREATININE 1.2 mg/dL (0.7-1.2); POTASSIUM 3.8 mmol/L (3.5-5.1)
[2018-09-23 07:45] LABS: HEMATOCRIT 32.4 % (42.0-52.0)
--- NOTE | 2018-09-23 10:40 | PROGRESS NOTE ---
DATE: 09/23/2018 He was followed by Dr. Renteria. Director Clinical Information Services is Dr. Bubba Shepard. SUBJECTIVE: This is a 77 year old who has had black tarry stools for about 1-1/2 weeks. He presented to [facility] stating that he had an WA approximately 2 weeks ago and heart catheterization. He was placed on Eliquis. Over the past 1-1/2 weeks, he has had increased weakness, loose stools. Workup in the emergency room showed hematocrit was 31, hemoglobin 10. Stool for occult blood was positive and so admitted here to the hospital. PAST MEDICAL HISTORY: Two weeks ago, he had a myocardial infarction. He was placed on Eliquis at that time. Hypertension, hyperlipidemia, COPD, history of CVA, and hypothyroidism. PAST SURGICAL HISTORY: Status post CABG, cholecystectomy, heart stent placement, and pacemaker. OBJECTIVE: The patient was sitting up. He was about to eat breakfast. I told him we will probably hold that and hold him n.p.o., see what Gastroenterology wants to do. Vital signs: Temperature is 97.9, pulse 60, respirations 24, blood pressure 116/44. HEENT: Pupils are equal and round. Lungs are clear in all lung smith. Cardiovascular: Regular rate and rhythm without murmur or S3. Abdomen is soft. Skin is warm and dry. Conjunctivae pink. DIAGNOSTIC DATA: His hematocrit is stable at 32, hemoglobin of 10. ASSESSMENT AND PLAN: 1. Suspect upper gastrointestinal bleed. He has recently been placed on Eliquis. We have him on Protonix 40 mg IV daily and holding his aspirin and Eliquis. Dr. Galvez to follow today to evaluate. 2. General weakness and deconditioning. 3. Status post myocardial infarction about 2 weeks ago. He had heart stent placement. 4. Hypertension. 5. History, I think, of atrial fibrillation, although I do not see that on past history. He seemed to think he was getting the Eliquis, I believe that was for the stents that were placed. We will hold that at this time. He may need an EGD and a colonoscopy. 6. Review of his orders. He is getting normal saline at 75 mL an hour, Protonix 40 mg IV daily. cc: Yuniel Long MD
[2018-09-23 14:36] LABS: HEMATOCRIT 30.7 % (42.0-52.0); HEMOGLOBIN 9.7 g/dL (14.0-18.0)
[2018-09-23] MEDS: CARAFATE LIQUID PO SCH ×2 (15:51→20:38)
[2018-09-23] MEDS: ICAR-C PO SCH (20:38)
[2018-09-23] MEDS: SODIUM CHLORIDE 0.9% INJ SCH (20:39)
--- NOTE | 2018-09-24 00:39 | GASTROENTEROLOGY CONSULTATION ---
DATE: 09/23/2018 ATTENDING PHYSICIAN: Yuniel Long MD. PRIMARY CARE DOCTOR: Bubba Shepard MD. REASON FOR CONSULTATION: Dark stools. HISTORY OF PRESENT ILLNESS: Mr. Arreguin is a 77-year-old male who was and 2017 for increasing weakness and dark tarry stools for a week and a half. The patient has been taking aspirin and Eliquis at home which the last dose was yesterday morning. In the hospital, his blood counts were noted to be low, but they are relatively stable the last 24 hours. He has been typed and screened. He is now receiving a blood transfusion. Denies any vomiting blood. He denies any history of vomiting blood. He has had colonoscopy done many years ago. PAST MEDICAL HISTORY: Hypertension, hyperlipidemia, COPD, CVA, hypothyroidism, NC 2 weeks ago, and a heart catheterization 2 weeks ago. PAST SURGICAL HISTORY: CABG, cholecystectomy, heart stent placement, pacemaker placement. FAMILY HISTORY: Reviewed and noncontributory. SOCIAL HISTORY: He lives with his at home. He is the primary caregiver for his . He denies any tobacco, alcohol, or illicit drug abuse. He has a supportive son at bedside. ALLERGIES: No known drug allergies. MEDICATIONS IN THE HOSPITAL: Include Carafate, Tylenol, normal saline, Zofran, Protonix. He is currently NPO. We will start him on clear liquid diet. REVIEW OF SYSTEMS: Denies any fevers, rigors, chills, chest pain, shortness of breath, dyspnea. Denies any vomiting blood. Does have history of dark stools. Denies any new neurologic complaints. Does have history of arthritis. The patient had recent heart catheterization and was started on Eliquis recently. He has a previous history of coronary disease. PHYSICAL EXAMINATION: Vital Signs: Temperature 97.9 degrees, pulse of 67, respiratory rate 20, blood pressure 106/53, saturating 98% on room air. Body weight of 203 pounds 4 ounces, BMI of 30.0 kg/m2. General appearance: Moderately built, moderately nourished, lying in bed, in no acute distress. HEENT: Pale conjunctivae. No icterus. Neck: Supple. Abdomen: Soft, nontender, nondistended. No guarding or rebound. Extremities: No cyanosis or clubbing. Neurologic: Alert, awake, oriented. LABORATORIES: Hemoglobin is 9.7, hematocrit is 30.7, white count of 10.9, platelet count 333,000. Sodium of 130, potassium 3.8, chloride 105, bicarb of 21, anion gap 12, BUN of 26, creatinine of 1.2, glucose 105, calcium 8.5. AST 26, ALT 27, alkaline phosphatase 121, total protein 6.2, albumin of 3.6. IMPRESSION AND PLAN: 1. Melena. His aspirin and Eliquis have been withheld. We will give him Protonix and Carafate for now. We will type and cross, transfuse to keep hematocrit more than 27%. 2. We will start him on clear liquid diet if the hematocrit is stable. 3. The patient will be scheduled for EGD as an inpatient if he continues to drop hematocrit. The patient wants to go home to take care of his . We discussed that if his hematocrit is stable 24 hours, then he may be able to go home and we will do outpatient EGD. The patient will need to follow up in the clinic in the next few days after discharge. 4. Atrial fibrillation. His Eliquis has been withheld per the primary care team. 5. Anemia. Continue to watch for now. We will start on Iron-C b.i.d. and multivitamin once daily. 6. The patient is to avoid any NSAIDs. 7. The above plan was discussed with the patient and family and all questions answered. Please call us with any further questions. cc: MD Bubba Logan MD MTDGarett
[2018-09-24] MEDS: CARAFATE LIQUID PO SCH ×4 (02:30→21:41)
[2018-09-24] MEDS: NS 1,000 ML IV SCH ×2 (06:07→23:01)
[2018-09-24 09:04] LABS: BASO# 0.01 X1000 (0.0-0.2); BASO% 0.1 % (0.0-0.8); EOS% 2.3 % (0.0-10.0); HEMATOCRIT 28.9 % (42.0-52.0); IMM GRAN# 0.05 X1000 (0.0-0.04); IMM GRAN% 0.6 % (0.0-0.5); LYMPH# 1.57 X1000 (1.2-3.4); LYMPH% 18.2 % (20.5-51.1); MCH 30.9 PG (27-31); MCHC 31.1 g/dL (33-37); MCV 99.3 FL (81-99); MONO# 0.89 X1000 (0.11-0.59); MONO% 10.3 % (1.7-9.3); MPV 9.5 FL (7.4-10.4); NEUT# 5.91 X1000 (1.4-6.5); NEUT% 68.5 % (42.2-75.2); PLT 262 X1000 (130-400); RBC 2.91 XMIL (4.7-6.1); RDW 15.2 % (11.5-14.5); WBC 8.63 X1000 (4.8-10.8)
[2018-09-24 09:08] LABS: AGAP 13; BUN 18 mg/dL (8-22); CALCIUM 8.1 mg/dL (8.8-10.2); CHLORIDE 109 mmol/L (98-107); COSMO 290; ESTIMATED GFR > 60; GLUCOSE 119 mg/dL (70-104); POTASSIUM 3.8 mmol/L (3.5-5.1); SODIUM 144 mmol/L (136-145); TCO2 22 mmol/L (25-35)
[2018-09-24] MEDS: PROTONIX IV SCH ×2 (09:08→21:41)
[2018-09-24] MEDS: SODIUM CHLORIDE 0.9% INJ SCH ×2 (09:08→21:41)
[2018-09-24] MEDS: CENTRUM SILVER PO SCH (09:08)
[2018-09-24] MEDS: ICAR-C PO SCH ×2 (09:08→21:41)
--- NOTE | 2018-09-24 10:33 | GASTROENTEROLOGY PROGRESS NOTE ---
DATE: 09/24/2018 SUBJECTIVE: Patient resting in bed. He denies any bowel movement this morning. Denies any nausea or vomiting. He denies any abdominal pain. His H and H has dropped slightly to 28.9. OBJECTIVE: Vital signs: Temperature of 97.6 degrees, pulse of 74, respiratory rate 16, blood pressure 110/49, satting 97% on room air. General Appearance: Moderately-malnourished male lying in bed in no acute distress. HEENT: Pale conjunctivae, sclerae with no icterus. Neck: Supple. Abdomen: Obese, soft, nontender, nondistended. No guarding. Extremities: No cyanosis, clubbing. Neurologic: Neuro-ramirez, alert, awake, oriented. LABS: 1. Hemoglobin and hematocrit is 9 and 28.9, white count of 8.63, platelet count of 262. Sodium 140, potassium 3.8, chloride 109, bicarbonate 22, anion gap 13. BUN of 18, creatinine of 1, glucose of 119, calcium 8.1, troponin-T is 0.035. IMPRESSION AND PLAN: 1. Melena. We will continue Protonix twice daily. Will add Carafate 1 g every 6 hours. 2. Anemia. We will type and cross, and transfuse as needed. 3. Will keep him on iron C twice daily, multivitamin once daily. 4. The patient has been off aspirin and Eliquis for the last 2 days. We will schedule him for EGD tomorrow under anesthesia. The risks, benefits, indications, and alternatives to the procedure were explained to the patient and all questions answered. 5. Atrial fibrillation. Aware. The above plans discussed with the patient and family at bedside. All questions answered. Please call with any further questions please. cc: MD Bubba Logan MD
--- NOTE | 2018-09-24 13:51 | PROGRESS NOTE ---
DATE: 09/24/2018 SUBJECTIVE: Mr. Arreguin has had no abdominal pain. He has not had any further bleeding that he has noted. The plan is to do an EGD tomorrow. OBJECTIVE: Vital signs: Temp 97.7 degrees, pulse 63, respirations 16, blood pressure 110/70. HEENT: Pupils are equal and round. Lungs: Clear in all lung smith. Cardiovascular: Regular rhythm and rate without murmur or S3. Abdomen: Soft. No abdominal tenderness. No point tenderness. No epigastric pain. Skin: Warm and dry. LAB: White count 8,630, hematocrit is 28, hemoglobin 9, so it has been stable, platelet count is 262,000. Sodium 144, potassium 3.8, chloride 109, BUN 18, creatinine 1.0. His transaminases have been normal. Pro time is 19, PTT was 44. ASSESSMENT AND PLAN: 1. Melena. He is on Protonix 40 mg twice a day and Carafate 1 g q.6 hours. We have been watching his hemoglobin and hematocrit and will type and cross if needed. I think the plan is to do an EGD tomorrow. He is on iron C twice a day and multivitamin once a day. The patient has been off his aspirin and Eliquis. We will continue to hold that and plan EGD in the morning. 2. Atrial fibrillation. Rate is controlled. 3. General weakness, deconditioning which is mild. 4. Status post myocardial infarction about 2 weeks ago and had a stent placed. No sign of active cardiac ischemia. 5. Hypertension. 6. History of atrial fibrillation I believe in the past, although I do not know that I see documentation of that. I think the Eliquis was for his coronary artery disease. So, continue present regimen. Plan EGD tomorrow. He is on iron carbonyl, ascorbic acid 1 b.i.d. He is on Carafate 1 g twice a day. He is on Protonix 40 mg IV q.12 and getting normal saline at 75 mL an hour. cc: Yuniel Long MD
[2018-09-24] MEDS: TYLENOL PO PRN (23:01)
[2018-09-24] MEDS ORDERED: ULTRAM PO ONE (23:59)
[2018-09-25] MEDS: CARAFATE LIQUID PO SCH ×4 (01:20→20:39)
[2018-09-25 07:48] LABS: INR 1.06; PROTIME 14.7 Seconds (11.0-16.0)
[2018-09-25] MEDS: ICAR-C PO SCH ×2 (10:32→20:38)
[2018-09-25] MEDS: CENTRUM SILVER PO SCH (10:32)
[2018-09-25] MEDS ORDERED: DIPRIVAN 1% ONE (10:39)
[2018-09-25] MEDS ORDERED: XYLOCAINE-MPF 2% ONE (11:00)
[2018-09-25] MEDS ORDERED: VERSED ONE (11:00)
[2018-09-25] MEDS ORDERED: AMIDATE ONE (11:24)
[2018-09-25] MEDS ORDERED: BREVIBLOC ONE (11:24)
[2018-09-25] MEDS: TYLENOL PO PRN ×2 (11:39→18:41)
[2018-09-25] MEDS: SODIUM CHLORIDE 0.9% INJ SCH ×2 (11:39→20:39)
[2018-09-25] MEDS: PROTONIX IV SCH ×2 (11:39→20:39)
[2018-09-25] MEDS: NS 1,000 ML IV SCH (11:40)
--- NOTE | 2018-09-25 11:50 | OPERATIVE NOTE ---
PROCEDURE DATE: 09/25/2018 REQUESTING PHYSICIAN: Dr. Petra MD. PRIMARY CARE DOCTOR: Dr. Bubba Shepard. TITLE OF PROCEDURE: Esophagogastroduodenoscopy. PREOPERATIVE DIAGNOSES: 1. Melena. 2. Anemia. 3. History of atrial fibrillation, on Eliquis, which has been withheld for 2 days. 4. History of coronary disease, on aspirin and Eliquis. POSTOPERATIVE DIAGNOSES: 1. Evidence of Z-line at 44 cm. 2. Evidence of hiatal hernia, 2 cm. 3. Evidence of mild antral gastritis. 4. Normal fundus, cardia, incisura on retroflexion. 5. Evidence of normal duodenal bulb and second portion of the duodenum. 6. Evidence of blood tinged sputum noted in the oropharynx which was suctioned out. 7. No evidence of any active bleeding noted in the upper gastrointestinal tract. ESTIMATED BLOOD LOSS: None. COMPLICATIONS: None. ANESTHESIA: Monitored anesthesia care per the anesthesiologist. SPECIMENS: None. DESCRIPTION OF PROCEDURE: After informed consent from the patient and family, explained the risks, benefits, indications, alternatives to the procedure, patient was prepared for EGD. The risks of the procedure, including infection, bleeding, pain, trauma to the surrounding structures, perforation, were explained to the patient, among others and he acknowledged understanding and agreed to proceed with the procedure. The patient has a significant cardiac history. Risk of anesthesia is also higher. This was discussed with the patient before the procedure. The patient was brought to the OR. He was turned in the left lateral position. A bite block was placed in the patient's mouth. After adequate monitored anesthesia, the upper scope was introduced and traversed all the way to the second portion of the esophagus; normal in the entire length. The Z- line was at 44 cm. There was evidence of a 2 cm sliding hiatal hernia. There was evidence of mild erythema. The patient had evidence of erythema in the body and antrum suggesting mild antral gastritis. Retroflexion revealed normal fundus, cardia, incisura. There was no evidence of any ulceration. There was no evidence of fresh or old blood in the entire EGD. The duodenal bulb and second portion of the duodenum appeared normal. There was evidence of blood- tinged sputum in the oropharynx which was suctioned out. This was coming from the lungs and this could be seen in the setting of congestive heart failure. The air and scope were withdrawn. The patient tolerated the procedure well and was monitored in the OR in stable condition. RECOMMENDATIONS: 1. We will call a Cardiology consultation as the patient could have pulmonary edema which could be leading to blood-tinged sputum. 2. We will obtain a chest x-ray. 3. We will keep him on Protonix. 4. We will start him on a full liquid diet today. 5. We will continue to watch blood counts and transfuse as needed. 6. The above plan was discussed with the patient's family and all questions were answered. Please call us with any questions. cc: MD Yuniel Logan MD James Murphy, MD Peter Johnson, MD MTDD
--- NOTE | 2018-09-25 12:31 | Diag Imaging Result Doc PS360 ---
EXAM: CHEST-PORTABLE 09/25/2018 HISTORY: evaluate chf/pnuemonia TECHNIQUE: AP portable at 1221 COMMENT: The inspiration is suboptimal. There is platelike atelectasis in the left upper lobe which was not previously present. Considering the degree of inspiration there has been otherwise no significant change since the previous study of 09/07/2018. IMPRESSION: Poor inspiration. Left upper lobe atelectasis. Electronically signed by Kraig Dempsey 09/25/2018 12:29 PM
[2018-09-25] MEDS ORDERED: NS 1,000 ML IV SCH (13:30)
--- NOTE | 2018-09-25 14:10 | PROGRESS NOTE ---
DATE: 09/25/2018 Mr. Arreguin is sitting up waiting, son was at the bedside. He is waiting to get EGD done this morning. Denies any pain. No further bleeding. Temperature 98.5 degrees, pulse 92, respirations 24, blood pressure 108/62. Pupils are equal and round.Lungs: Clear in all lung smith. Cardiovascular: Regular rhythm, rate without murmur or S3. Abdomen: Soft. Skin: Warm and dry. Urine output was 500 mL. DATA: Chest x-ray from this morning, poor inspiration left upper lobe. Atelectasis. ASSESSMENT AND PLAN: 1. Melena. He is on Protonix and Carafate. EGD planned for this morning. He is taking iron C twice a day, multivitamin daily. 2. Atrial fibrillation rate controlled. 3. General weakness. 4. Status post myocardial infarction 2 weeks ago. Stent was placed. 5. Hypertension. 6. History of atrial fibrillation. This is by his report but I am not sure about that diagnosis but at any rate, he is off the Eliquis and aspirin. cc: Yuniel Long MD
[2018-09-25] MEDS: ALDACTONE PO SCH (14:26)
--- NOTE | 2018-09-25 14:50 | CARDIOLOGY CONSULTATION ---
DATE: 09/25/2018 REQUESTING PHYSICIANS: Dr. Galvez from GI. REASON FOR CONSULTATION: Possible case of pulmonary edema. Chief complaint: weakness/dark stools/exertional dyspnea. HISTORY OF PRESENT ILLNESS: Mr. Arreguin is a 77-year-old male who presented to the hospital emergency room department at [facility] on September 22 at about 4: 28 p.m. with complaints of a few days of feeling weak and noticing dark stools. He also reported some exertional dyspnea. Upon initial encounter, they documented the presence of anemia with a hemoglobin level of 10.1, platelet count was 333,000. The patient was noted to be on one anticoagulant, Eliquis, which he is taking twice a day, and also he was noted to be taking Brilinta 90 mg twice a day and aspirin 81 mg daily. They transferred the patient to the [facility] for further evaluation. He was seen by Dr. Galvez and he performed an upper endoscopy today, which indicated evidence of Z line at 44 cm, evidence of hiatal hernia two cm, evidence of mild antral gastritis, evidence of normal duodenal bulb, evidence of blood tinged sputum noted in the oropharynx, which was suctioned out. There was no evidence of active bleeding noted in the upper gastrointestinal tract. Because of the blood found in the oropharynx, Dr. Galvez raised concern for possible pulmonary edema. A chest x-ray has been ordered STAT and reported by Radiology as indicating poor inspiration and left upper lobe atelectasis. A pro BNP level has been checked and it is elevated at 2771 picograms per mL, which is not the highest that he has ever had. In the past, he has had higher levels than that. The patient denies having any chest pain. He seems to be comfortable. He denies having any swelling of his legs. PAST MEDICAL HISTORY: Positive for: 1. Coronary heart disease, severe. Back in 2011 he underwent coronary bypass procedure. He is being followed by Dr. Shepard in [place]. In January 2017 Dr. Flores performed stenting to the circumflex system. He presented with unstable angina pectoris to this hospital on September 07 and patient was transferred to [facility] where Dr. White performed coronary intervention. The details of that intervention are not available to me at the time of this dictation. We have requested records. However, the patient was placed on dual antiplatelet therapy and Eliquis was added to his regimen. 2. The patient has a history of paroxysmal atrial flutter. He has had sick sinus syndrome. 3. He has a history of previous stroke. PAST SURGICAL HISTORY: He has had bilateral carotid artery endarterectomy in the past. He has had cholecystectomy. He has had coronary bypass surgery in 2011, including a mammary artery graft to LAD and a vein graft to the obtuse marginal system. Right coronary artery was totally occluded. He has had no other major procedures. The patient received implantation of a permanent pacemaker on 06/15/2016 for sick sinus syndrome, it is a dual chamber. SOCIAL HISTORY: He is . His is bedbound and he is the caregiver. He has three grownup children who are ages 49, 44, and 42. 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 REVIEW OF SYSTEMS: Positive for previous significant exertional angina pectoris , functional class 3 up until recently when he became 6 and he had intervention. No other major positives in the review of systems. He denies having wheezing, cough, or any hemoptysis that he is aware of. He has noted the black stools. No abdominal pain. No major musculoskeletal pain. No visual or hearing problems. No neurological issues. No psychiatric illness. No genitourinary problems. No hematologic issues that he is aware of. No cancer. No pneumonia. No pleurisy. No active infections at this time. HOME MEDICATIONS LISTED AT TIME OF THIS PRESENT ADMISSION: Included, 1. Apixaban 5 twice a day. 2. Aspirin 81 mg daily. 3. Lipitor 80 mg daily. 4. Furosemide 80 daily. 5. Combivent one puff every four to six hours. 6. Isosorbide mononitrate 90 mg daily. 7. Levothyroxine 50 mcg daily. 8. Metoprolol XL once a day. 9. Potassium chloride daily. 10.Brilinta 90 twice a day. ALLERGIES: Negative. PHYSICAL EXAMINATION: Vital Signs: Blood pressure 108/62, temperature 98.5, pulse 92, respirations 24. General: He is awake, alert, and oriented. In no distress. HEENT: Unremarkable. Chest: Clear to auscultation and percussion. Heart sounds are regular and rhythmic. No evident gallop or murmur. Abdomen: Soft and nontender. No masses or hepatomegaly. Extremities: Show good pulses, no peripheral edema. Neurological: He follows commands, moves four extremities. BLOOD WORK: Sodium is 144, potassium 3.8, BUN 18, creatinine 1.0, chloride is 109, carbon dioxide 22. White cell count 8,630, hemoglobin 9.0, hematocrit 28.9%. Pro time is normal. D dimer is normal. Troponin has been checked many times - 0.011, 0.035, and 0.042. EKG/telemetry shows activity of a dual chamber pacemaker. IMPRESSION: 1. The patient presented to the hospital with dark stools, suspected to have gastrointestinal bleeding. 2. Severe coronary heart disease, recent coronary intervention with recommendations to stay on dual antiplatelet therapy for a prolonged period of time. 3. Paroxysmal atrial flutter with indication for anticoagulation. 4. History of previous coronary bypass surgery; mammary graft to left anterior descending and saphenous vein graft to marginal branch in 2011. 5. History of hyperlipidemia. 6. History of hypertension. 7. Abnormal Chest X Ray and blood in sputum. Question of limited pulmonary hemorrhage secondary to anticoagulant vs. pulmonary edema/CHF. RECOMMENDATIONS: At this point in time we will keep the patient on present therapy. Consider addition of spironolactone. Consider doing non contrast CT of chest. We will observe overnight and if nothing major shows up, I guess he could be discharged in the morning. cc: Cash Spivey MD [facility]
[2018-09-25] MEDS: ULTRAM PO PRN (20:39)
[2018-09-26] MEDS: ULTRAM PO PRN (02:09)
[2018-09-26] MEDS: CARAFATE LIQUID PO SCH ×3 (02:10→14:03)
[2018-09-26] MEDS ORDERED: SYNTHROID PO SCH (07:00)
[2018-09-26] MEDS: CENTRUM SILVER PO SCH (08:29)
[2018-09-26] MEDS: SODIUM CHLORIDE 0.9% INJ SCH (08:29)
[2018-09-26] MEDS: PROTONIX IV SCH (08:29)
[2018-09-26] MEDS: ICAR-C PO SCH (08:29)
[2018-09-26] MEDS: ALDACTONE PO SCH (08:29)
--- NOTE | 2018-09-26 08:51 | CARDIOLOGY PROGRESS NOTE ---
DATE: 09/26/2018 CHIEF COMPLAINT: Blood in the stools, darkened stools, question of blood in the sputum, question of pulmonary edema, weakness. SUBJECTIVE: Mr. Arreguin feels well this morning. He has really no complaints. He slept last night. He was able to move his bowels. He has no chest pain, no dyspnea, no palpitations. OBJECTIVE: VITAL SIGNS: Blood pressure is 105/46, temperature 97.8 degrees, pulse 80, respirations 16. GENERAL: He is awake, alert, a little pale. HEENT: Unremarkable. CHEST: Shows basically clear lungs to auscultation and percussion. The intensity of the breath sounds is greatly diminished. HEART: Regular and rhythmic. I do not hear any gallop or murmur. ABDOMEN: Soft, nontender. EXTREMITIES: Show no edema. NEUROLOGICAL: Follows commands. Moves 4 extremities. IMPRESSION: 1. Patient who presented to the hospital with dark stools. He had an upper endoscopy by the trailer steerer and he saw no evidence of active bleeding; however, he reported mild antral gastritis. Colonoscopy has not been performed. 2. Question of pulmonary edema. Patient's chest x-ray showed decreased inspiratory effort with possible left upper lobe atelectasis. There was elevation of ProBNP up to 2,771 picograms per mL. 3. History of coronary heart disease. Patient recently underwent percutaneous angioplasty at the [facility] of the circumflex system by Dr. White. There was no indication on the discharge summary that the patient has received a stent; however, he was advised to stay on aspirin and Brilinta since that intervention. 4. History of atrial flutter/sick sinus syndrome/status post dual chamber pacemaker. 5. History of previous coronary bypass surgery. RECOMMENDATIONS: At this point in time, I will suggest to resume aspirin and Brilinta at least for the next 6 months. I would probably hold Eliquis for some time. The question of whether or not he needs to have a colonoscopy to complete the GI evaluation is still lingering. The patient from my viewpoint has no contraindications to proceeding with colonoscopy if it is warranted. Upon discharge, the patient needs to be referred back to Dr. Bubba Shepard who is his primary mill attendant. Please call me if you have any questions or concerns. cc: Cash Spivey MD
[2018-09-26] MEDS ORDERED: TOPROL XL PO SCH (09:00)
[2018-09-26 09:03] LABS: BASO# 0.02 X1000 (0.0-0.2); BASO% 0.2 % (0.0-0.8); EOS# 0.18 X1000 (0.0-0.7); EOS% 1.8 % (0.0-10.0); HEMOGLOBIN 8.3 g/dL (14.0-18.0); IMM GRAN# 0.03 X1000 (0.0-0.04); IMM GRAN% 0.3 % (0.0-0.5); LYMPH# 1.69 X1000 (1.2-3.4); LYMPH% 17.1 % (20.5-51.1); MCH 31.3 PG (27-31); MCHC 30.7 g/dL (33-37); MCV 101.9 FL (81-99); MONO# 1.17 X1000 (0.11-0.59); MONO% 11.8 % (1.7-9.3); MPV 9.2 FL (7.4-10.4); NEUT% 68.8 % (42.2-75.2); PLT 282 X1000 (130-400); RBC 2.65 XMIL (4.7-6.1); RDW 15.5 % (11.5-14.5); WBC 9.89 X1000 (4.8-10.8)
[2018-09-26 09:18] LABS: AGAP 10; BUN 11 mg/dL (8-22); CALCIUM 8.3 mg/dL (8.8-10.2); CHLORIDE 106 mmol/L (98-107); COSMO 277; CREATININE 0.8 mg/dL (0.7-1.2); ESTIMATED GFR > 60; GLUCOSE 133 mg/dL (70-104); POTASSIUM 3.6 mmol/L (3.5-5.1); SODIUM 138 mmol/L (136-145); TCO2 22 mmol/L (25-35)
--- NOTE | 2018-09-26 12:45 | GASTROENTEROLOGY PROGRESS NOTE ---
DATE: 09/26/2018 SUBJECTIVE: No acute overnight events. Afebrile. Patient denies any complaints this morning. EGD yesterday revealed a small hiatal hernia as well as mild gastritis without any obvious source of upper GI bleeding. The patient was seen by Cardiology for re-evaluation of anticoagulation, as it was thought that his bloody sputum may be pulmonary in origin. The patient reports having a brown stool yesterday. PHYSICAL EXAMINATION: Vital Signs: Temperature of 97.8, heart rate of 80, respiratory rate of 16, blood pressure 105/46. O2 saturation of 95% on 2 L nasal cannula. General : Awake, alert, oriented, no acute distress. Pleasant and conversant. HEENT: Anicteric. Moist mucous membranes. Extraocular motor intact. Neck: No lymphadenopathy. No JVD. Cardiac: Regular rate and rhythm. No murmurs. Lungs: Clear to auscultation bilaterally. Abdomen: Soft, nontender, nondistended. Normoactive bowel sounds. No rebound or guarding. Extremities: No clubbing, cyanosis, or edema. Neuro: Nonfocal. LABS: White count of 9.8, hemoglobin 8.3 from 9.0 yesterday, platelets of 282, 000. Sodium 138, potassium 3.6, chloride 106, bicarb 22, BUN 11, creatinine 0.8. ASSESSMENT AND PLAN: Mr. Donta Arreguin is a 77-year-old gentleman who presented with melena in the setting of multiple antiplatelet agents including Eliquis, aspirin and Brilinta, status post EGD which revealed hiatal hernia, mild gastritis, but no obvious upper gastrointestinal source of GI bleeding. His hemoglobin has remained stable and he has not required any blood transfusions since hospitalization. Cardiology is following to assist with antiplatelet management in the setting of his recent coronary event. 1. Melena, status post EGD. No obvious upper gastrointestinal source of bleeding. Continue proton pump inhibitor p.o. once daily. 2. Pulmonary edema. The patient currently does not appear to be in congestive heart failure exacerbation. Cardiology is following. 3. Coronary artery disease, status post recent percutaneous coronary intervention and stent placement. Will defer antiplatelet therapy to Cardiology. Agree with resuming medications given recent PCI with GI prophylaxis indefinitely. 4. Okay to advance diet to cardiac diet. No plans for colonoscopy during inpatient given patient is currently up-to-date and presentation does not appear to be lower GI in origin. Should patient have recurrent bleeding, we will consider repeat upper endoscopy plus or minus colonoscopy. We will follow with you. Please call with any questions or concerns. MTDD
--- NOTE | 2018-09-26 15:42 | PROGRESS NOTE ---
DATE: 09/26/2018 SUBJECTIVE: The patient is resting comfortably in bed. He has had no bloody stools. He was able to tolerate his lunch without any difficulty. He denies any nausea, vomiting, or diarrhea. OBJECTIVE: Vital Signs: Temperature 97.8, blood pressure 113/51, heart rate 78, respirations 26, O2 saturation 95% on 2 L nasal cannula. Urine output 800 mL. General: This is an overweight male sitting up in bed in no acute distress. Heart: S1, S2 normal. Regular rate and rhythm. Lungs: Equal air entry bilaterally. Diminished breath sounds at the bases. No crackles. No wheezing. Abdomen: Positive bowel sounds. Soft, obese, nontender, nondistended. Extremities: No edema. No cyanosis. No calf tenderness. Neurologic: The patient is alert and oriented x3. No focal neurologic deficits noted. LABORATORY DATA: White blood cell count 9.8, hemoglobin 8.3, hematocrit 27, platelets 282,000. Sodium 138, potassium 3.6, chloride 106, CO2 of 22, BUN 11, creatinine 0.8, glucose 133. ASSESSMENT AND PLAN: 1. Mild antral gastritis. The patient is no longer having melena. He is going to be discharged on Protonix. The patient will be started back on aspirin and Brilinta. His hemoglobin and hematocrit will be monitored closely. We will arrange for the patient to follow up for an hemoglobin and hematocrit next week with his primary care physician. 2. Hypothyroidism. Continue on Synthroid. 3. Iron deficiency anemia. The patient is now on iron supplementation. 4. Chronic obstructive pulmonary disease. The patient's oxygen saturations were noted to be 86% on room air. We will arrange for home oxygen for the patient. The patient will need to continue on Combivent that he is already on as an outpatient. 5. Congestive heart failure. Continue on Aldactone as recommended by the tool design engineer as well as Lasix. 6. History of atrial flutter, status post dual-chamber pacemaker placement. The patient will be restarted on aspirin and Brilinta. 7. Disposition. The patient is stable for discharge home with home oxygen. cc: Alison Sauceda MD
[2018-09-26 16:20] VITALS: BP 96/53
[2018-09-26] MEDS ORDERED: LIPITOR PO SCH (21:00)
--- NOTE | 2018-09-27 05:54 | DISCHARGE SUMMARY ---
ADMISSION DATE: 09/22/2018 DISCHARGE DATE: 09/26/2018 FINAL DISCHARGE DIAGNOSES: 1. Gastrointestinal bleed. 2. Mild antral gastritis. 3. Hypothyroidism. 4. Chronic obstructive pulmonary disease. 5. Congestive heart failure. 6. Iron deficiency anemia. 7. History of atrial flutter, status post dual-chamber pacemaker placement. 8. CAD s/p CABG CONSULTATIONS: GI consultation with Dr. Galvez. Cardiology consulation with PROCEDURES PERFORMED DURING THIS HOSPITAL STAY: EGD which revealed mild antral gastritis. No active bleeding noted. HOSPITAL COURSE: Mr. Arreguin is a 77-year-old male with a history of coronary artery disease, status post CABG, paroxysmal atrial flutter, status post dual-chamber pacemaker placement, and hypothyroidism who presented to the ER with a chief complaint of melena. On admission, the patient was noted to have a hemoglobin and hematocrit of 10 and 31 respectively. The patient was also noted to be on Brilinta, aspirin, and Eliquis. The patient was admitted to the hospitalist service and GI was consulted as well as cardiology. The patient's stool for occult blood was noted to be positive on admission. The patient was started on IV Protonix. The patient was taken for endoscopy on September 25 which revealed mild antral gastritis. It was recommended by GI that the patient continue on proton pump inhibitor therapy. The patient was seen by the build manager who started the patient on Aldactone. Also, he recommended continuing the aspirin and Brilinta but to hold off on the Eliquis until the patient is seen again by his build manager. The patient did not require a blood transfusion during this hospitalization. The patient was able to tolerate a cardiac diet without any difficulty. The patient was advised to continue his diuretic therapy and the other cardiac medications. The patient was also noted to be hypoxic on room air so drug abuse social worker arranged for the patient to be discharged on supplemental oxygen. DISCHARGE MEDICATIONS: 1. Protonix 40 mg p.o. daily. 2. Aldactone 12.5 mg p.o. daily. 3. Icar C 1 tablet oral twice a day. 4. Synthroid 50 mcg oral daily. 5. Isosorbide mononitrate 90 mg p.o. daily. 6. Lipitor 80 mg p.o. at bedtime. 7. Toprol-XL 50 mg p.o. daily. 8. Nitrostat 1 tablet sublingual every 5 minutes p.r.n. for chest pain. 9. Lasix 80 mg p.o. daily. 10. Aspirin 81 mg p.o. daily. 11. Brilinta 90 mg p.o. every 12 hours. 12. Combivent 1 inhalation every 4 hours p.r.n. for shortness of breath. DISCHARGE DIET: Low-sodium, low-cholesterol diet. ACTIVITY: As tolerated. FOLLOWUP INSTRUCTIONS: The patient will need to follow up with Dr. Galvez as scheduled by his clinic. The patient will need to follow up with Dr. Renteria in [address]James Shepard in 1 week. cc: MD Alison Diaz MD [facility]
[2018-09-27] MEDS ORDERED: PROTONIX PO SCH (07:00)
== END 2018-09-26 17:57 | disposition home health service (06) | DRG 377 ==
LOC: P.ED 15:07 → SUATTDRO 15:08 → 4N 15:08
PROVIDERS: ATTEND Internal Medicine
CPT/HCPCS: 71010; 71045; 80048; 80053; 82270; 82550; 83880; 84484; 85014; 85018; 85025; 85379; 85610; 85730; 86850; 86900; 86901; 94761; 96374; 97162; 97530; 99285; A9270; C9113; J2250; J7030; S0164

== ENCOUNTER 2018-09-27 03:06 | Inpatient (IN) ==
[2018-09-27 04:17] LABS: ALLEN TEST YES; BE -3.9 mmoll (-3.0-3.0); BLOOD TYPE ARTERIAL; HCO3-(ACT) 21.8 mmoll (20.0-26.0); METHB 0.9 % (0.0-1.5); O2(CT) 10.4 mL/dL (15.0-23.0); O2HB 90.8 % (95.0-99.0); PCO2(98.6) 27 mmHg (35-45); PO2(98.6) 59 mmHg (60-100); SAMPLE BLOOD; SAO2 94.3 % (95.0-100.0); THB 8.1 g/dL (11.5-17.4); pH(98.6) 7.46 (7.35-7.45)
[2018-09-27 04:18] LABS: MODALITY CANNULA
[2018-09-27] MEDS ORDERED: ROCEPHIN 1 GM in NS 50 ML IV ONE (04:30)
--- NOTE | 2018-09-27 05:43 | Diag Imaging Result Doc PS360 ---
EXAM: CHEST-1 VIEW HISTORY: sob TECHNIQUE: Chest single view COMPARISON: 09/25/2018 FINDINGS: The lungs are better expanded than on the prior study. There are increased interstitial markings throughout both lungs with mild cardiomegaly. There is a small left pleural effusion. Sternal wires are present and there is a left-sided pacemaker. IMPRESSION: Cardiomegaly with pulmonary edema. Electronically signed by Nish Urrutia 09/27/2018 5:41 AM
[2018-09-27 07:06] LABS: INR 1.03; PROTIME 14.3 Seconds (11.0-16.0)
[2018-09-27 07:07] LABS: PTT 35.7 Seconds (22.3-41.8)
--- NOTE | 2018-09-27 07:11 | PROVIDER DOCUMENTATION ---
HPI-Respiratory General - General Chief Complaint: Shortness of Breath Stated Complaint: sob Time Seen by Provider: 09/27/18 03:14 Source: patient Allergies/Adverse Reactions: Patient Allergies Allergy/AdvReac Type Severity Reaction Status Date / Time No Known Allergies Allergy Verified 09/22/18 15:25 Home Medications: Home Medication List Medication Instructions Recorded Confirmed Last Taken Type Atorvastatin Calcium [Lipitor] 80 mg PO HS 11/01/13 09/27/18 09/26/18 History Isosorbide Mononitrate [Isosorbide 90 mg PO DAILY 11/01/13 09/27/18 09/26/18 History Mononitrate ER] Levothyroxine [Synthroid] 50 microgm PO DAILY 11/01/13 09/27/18 09/26/18 History Furosemide [Lasix] 80 mg PO DAILY 01/23/17 09/27/18 09/26/18 History Metoprolol Succinate E.r. [Toprol 1 tab PO DAILY 01/23/17 09/27/18 09/26/18 History Xl] Nitroglycerin [Nitrostat] 1 tab SL Q5M PRN PRN 01/23/17 09/27/18 01/23/17 12:30 History 0.4 Ipratropium/Albuterol INH 1 inh IH Q4-6H PRN PRN 03/24/17 09/27/18 09/27/18 History [Combivent Respimat Inhaler] Aspirin [Aspir-Low] 81 mg PO DAILY 09/07/18 09/27/18 09/26/18 History Pantoprazole [Protonix] 40 mg PO DAILY@0700 #30 tab 09/26/18 09/27/18 Unknown Rx Spironolactone [Aldactone] 12.5 mg PO DAILY #30 tab 09/26/18 09/27/18 Unknown Rx Ticagrelor [Brilinta] 90 mg PO BID #60 tab 09/26/18 09/27/18 09/26/18 Rx Iron Carbonyl/Ascorbic Acid 1 tab PO BID 09/27/18 09/27/18 Unknown History [Icar-C] - History of Present Illness-Resp Nature of Presenting Problem: Pt was just D/c from ER for recent IN and SOB workup. Returns with SOB but denies any chest pain. Quality of Pain: reports: none Severity in ED: reports: mild Onset/Duration: reports: unsure Timing: reports: still present Context: reports: other (recent admission for same) Cough Quality/Degree: reports: no cough Current Respiratory Medication Therapy: Initiated see nurses note Modifying Factors: improves with: nothing Associated Symptoms: reports: shortness of breath, short of breath Similar Symptoms Previously?: Yes Recently seen or treated by another doctor?: Yes Review of Systems - Adult - REVIEW OF SYSTEMS - ADULT Constitutional: reports: no symptoms reported, see HPI Eyes: reports: no symptoms reported, see HPI Ears, Nose, Mouth & Throat: reports: no symptoms reported, see HPI Cardiovascular: reports: see HPI, edema Respiratory: reports: see HPI, shortness of breath Gastrointestinal: reports: no symptoms reported, see HPI Genitourinary: reports: no symptoms reported, see HPI Musculoskeletal: reports: no symptoms reported, see HPI Integumentary: reports: no symptoms reported, see HPI Neurological: reports: no symptoms reported, see HPI Psychiatric: reports: no symptoms reported, see HPI Endocrine: reports: no symptoms reported, see HPI Hematologic/Lymphatic: reports: no symptoms reported, see HPI Allergic/Immunologic: reports: no symptoms reported, see HPI All Other Systems: Reviewed and Negative Past History - Adult - PAST MEDICAL HISTORY-ADULT Review of Records: reports: Nursing Assessment Review, Medications Reviewed, Social history reviewed & non-contributory. 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") Endocrine/Immune: reports: thyroid disorder (hypothyroid) Other Conditions: reports: denies history - PRIOR SURGERIES/PROCEDURES Surgical/Procedure History: reports: CABG, cholecystectomy, cardiac stent, pacemaker, other (bypass, carotid, open heart) - PRIOR HOSPITALIZATIONS Prior Hospitalizations: reports: for other non-related - IMMUNIZATION STATUS Childhood Immunizations: See Nurse Assessment Flu Vaccine: See Nurse Assessment - FAMILY HISTORY Family History: reviewed, not pertinent Physical Exam-General - PHYSICAL EXAM-ADULT Initial Vital Signs Reviewed: Yes - CONSTITUTIONAL General Appearance: alert, no apparent distress, mild distress - EYES Eyes: PERRL/EOMI - HEAD, EARS, NOSE, MOUTH & THROAT HENMT: normocephalic/atraumatic, moist mucous membranes, normal ENT inspection - NECK Neck: non-tender, full range of motion, supple - RESPIRATORY Respiratory: no accessory muscle use, rhonchi, wheezing - CARDIOVASCULAR Cardiovascular: normal peripheral pulses, regular rate, rhythm, no edema, no gallop, no JVD, no murmur - GASTROINTESTINAL (ABDOMEN) Abdominal Exam: normal bowel sounds, non tender, soft, no organomegaly, no pulsatile mass - LYMPHATIC Lymphatic: no adenopathy - MUSCULOSKELETAL Back Exam: normal inspection Extremity: normal range of motion - SKIN Integumentary: normal color, normal turgor, warm/dry - NEUROLOGIC Neurologic: supervisor electronic coils II-XII nml as tested, grossly normal, no motor/sensory deficits - PSYCHIATRIC Psych/Mental Status: normal mood/affect, normal thought content, normal thought process, oriented x 3 Progress - PLAN OF CARE/RESULTS Progress/Plan/Lab Results: Vital Signs - 8 hr 09/27/18 03:06 09/27/18 04:35 09/27/18 05:33 Temperature 97.6 F 98.5 F Pulse Rate 73 60 60 Respiratory Rate 28 H 24 27 H Blood Pressure 105/57 104/49 121/67 O2 Sat by Pulse Oximetry 96 97 99 09/27/18 05:40 09/27/18 05:48 09/27/18 05:50 Temperature Pulse Rate 62 62 62 Respiratory Rate 28 H 26 H 25 H Blood Pressure 118/61 O2 Sat by Pulse Oximetry 94 L 97 96 09/27/18 06:00 09/27/18 06:02 09/27/18 06:03 Temperature Pulse Rate 63 62 61 Respiratory Rate 27 H 26 H 26 H Blood Pressure 114/56 114/56 O2 Sat by Pulse Oximetry 95 96 96 09/27/18 06:10 09/27/18 06:18 09/27/18 06:20 Temperature Pulse Rate 60 60 60 Respiratory Rate 28 H 26 H 24 Blood Pressure 120/57 O2 Sat by Pulse Oximetry 95 96 97 09/27/18 06:30 09/27/18 06:33 09/27/18 06:40 Temperature Pulse Rate 60 59 L 60 Respiratory Rate 26 H 32 H 24 Blood Pressure 120/47 O2 Sat by Pulse Oximetry 95 97 95 09/27/18 06:48 09/27/18 06:50 09/27/18 07:00 Temperature Pulse Rate 60 60 63 Respiratory Rate 30 H 30 H 27 H Blood Pressure 101/76 O2 Sat by Pulse Oximetry 96 94 L 95 09/27/18 07:03 09/27/18 07:10 09/27/18 07:18 Temperature Pulse Rate 64 60 69 Respiratory Rate 25 H 30 H 25 H Blood Pressure 132/56 105/50 O2 Sat by Pulse Oximetry 94 L 94 L 98 09/27/18 07:20 09/27/18 07:28 09/27/18 07:30 Temperature Pulse Rate 60 60 60 Respiratory Rate 29 H 13 32 H Blood Pressure 70/45 O2 Sat by Pulse Oximetry 96 96 95 09/27/18 07:33 09/27/18 07:34 09/27/18 07:40 Temperature Pulse Rate 60 60 64 Respiratory Rate 6 L 13 6 L Blood Pressure 79/49 79/47 O2 Sat by Pulse Oximetry 95 94 L 94 L 09/27/18 07:48 09/27/18 07:50 09/27/18 08:00 Temperature Pulse Rate 66 66 65 Respiratory Rate 15 9 L 24 Blood Pressure 74/51 O2 Sat by Pulse Oximetry 96 95 95 09/27/18 08:01 09/27/18 08:02 09/27/18 08:03 Temperature Pulse Rate 68 65 64 Respiratory Rate 23 31 H 25 H Blood Pressure 78/52 105/51 118/52 O2 Sat by Pulse Oximetry 95 96 97 09/27/18 08:10 09/27/18 08:13 09/27/18 08:18 Temperature Pulse Rate 60 65 60 Respiratory Rate 32 H 22 31 H Blood Pressure 105/51 119/62 O2 Sat by Pulse Oximetry 95 99 95 09/27/18 08:20 09/27/18 08:30 09/27/18 08:33 Temperature Pulse Rate 60 63 63 Respiratory Rate 28 H 26 H 25 H Blood Pressure 99/55 O2 Sat by Pulse Oximetry 92 L 95 94 L 09/27/18 08:40 09/27/18 08:41 09/27/18 08:48 Temperature 98 F Pulse Rate 67 65 60 Respiratory Rate 31 H 28 H 30 H Blood Pressure 114/48 103/55 O2 Sat by Pulse Oximetry 97 96 95 09/27/18 08:50 09/27/18 09:00 09/27/18 09:03 Temperature Pulse Rate 60 65 60 Respiratory Rate 30 H 31 H 24 Blood Pressure 105/62 O2 Sat by Pulse Oximetry 96 96 97 09/27/18 09:10 09/27/18 09:18 09/27/18 09:20 Temperature Pulse Rate 60 60 60 Respiratory Rate 33 H 33 H 29 H Blood Pressure 120/53 O2 Sat by Pulse Oximetry 97 94 L 95 09/27/18 09:30 09/27/18 09:33 09/27/18 09:40 Temperature Pulse Rate 64 64 65 Respiratory Rate 22 27 H 24 Blood Pressure 114/54 O2 Sat by Pulse Oximetry 96 96 95 09/27/18 09:48 09/27/18 09:50 09/27/18 10:00 Temperature Pulse Rate 64 64 64 Respiratory Rate 25 H 25 H 26 H Blood Pressure 113/46 O2 Sat by Pulse Oximetry 95 94 L 94 L 09/27/18 10:12 Temperature Pulse Rate 66 Respiratory Rate 22 Blood Pressure 95/47 O2 Sat by Pulse Oximetry 97 Laboratory Results - last 24 hr 09/27/18 09/27/18 09/27/18 03:30 04:08 06:47 WBC Cancelled 12.21 H RBC Cancelled 2.53 L Hgb Cancelled 7.9 L Hct Cancelled 25.8 L MCV Cancelled 102.0 H MCH Cancelled 31.2 H MCHC Cancelled 30.6 L RDW Std Deviation Cancelled 16.3 H Plt Count Cancelled 281 MPV Cancelled 9.5 Immature Gran % (Auto) Cancelled 0.4 Neut % (Auto) Cancelled 76.4 H Lymph % (Auto) Cancelled 11.6 L [place] % (Auto) Cancelled 11.1 H Eos % (Auto) Cancelled 0.3 Baso % (Auto) Cancelled 0.2 Immature Gran # (Auto) Cancelled 0.05 H Neut # (Auto) Cancelled 9.32 H Lymph # (Auto) Cancelled 1.42 [place] # (Auto) Cancelled 1.36 H Eos # (Auto) Cancelled 0.04 Baso # (Auto) Cancelled 0.02 Corrected WBC (Man) Cancelled PT INR PTT (Actin FS) Specimen Type ARTERIAL Sample Site L RADIAL pH 7.46 H pCO2 27 L pO2 59 L HCO3 21.8 Base Excess -3.9 L Oxyhemoglobin 90.8 L ABG O2 Sat (Calculated) 10.4 L ABG O2 Saturation 94.3 L ABG Carboxyhemoglobin 2.80 H ABG Methemoglobin 0.9 Yuniel Test YES A-a O2 Difference 107.0 Total Hemoglobin 8.1 L Lactate 3.10 H Liter Flow 2.0 Blood Gas Modality CANNULA FiO2 % 28.0 Sodium Potassium Chloride Carbon Dioxide Anion Gap BUN Creatinine Estimated GFR/1.73 m2 BUN/Creatinine Ratio Glucose Calculated Osmolality Calcium Total Bilirubin AST ALT Alkaline Phosphatase Troponin T Dgz-K-Hfzsyegudtq Pept Total Protein Albumin Globulin Albumin/Globulin Ratio Urine Source Urine Color Urine Clarity Urine pH Ur Specific [place] Urine Protein Urine Ketones Urine Blood Urine Nitrite Urine Bilirubin Urine Urobilinogen Urine Microscopic RBC Urine WBC Urine Microscopic WBC Ur Epithelial Cells Urine Bacteria Urine Glucose Crossmatch 09/27/18 09/27/18 09/27/18 06:47 06:47 06:47 WBC RBC Hgb Hct MCV MCH MCHC RDW Std Deviation Plt Count MPV Immature Gran % (Auto) Neut % (Auto) Lymph % (Auto) [place] % (Auto) Eos % (Auto) Baso % (Auto) Immature Gran # (Auto) Neut # (Auto) Lymph # (Auto) [place] # (Auto) Eos # (Auto) Baso # (Auto) Corrected WBC (Man) PT 14.3 INR 1.03 PTT (Actin FS) 35.7 Specimen Type Sample Site pH pCO2 pO2 HCO3 Base Excess Oxyhemoglobin ABG O2 Sat (Calculated) ABG O2 Saturation ABG Carboxyhemoglobin ABG Methemoglobin Yuniel Test A-a O2 Difference Total Hemoglobin Lactate Liter Flow Blood Gas Modality FiO2 % Sodium 139 Potassium 3.9 Chloride 104 Carbon Dioxide 20 L Anion Gap 15 BUN 17 D Creatinine 0.9 Estimated GFR/1.73 m2 > 60 BUN/Creatinine Ratio 19 Glucose 124 H Calculated Osmolality 281 Calcium 8.4 L Total Bilirubin 1.15 H AST 40 H ALT 19 Alkaline Phosphatase 111 Troponin T Poc-E-Fgurnsbdere Pept 9818 H Total Protein 6.0 L Albumin 3.3 L Globulin 2.7 Albumin/Globulin Ratio 1.2 Urine Source Urine Color Urine Clarity Urine pH Ur Specific [place] Urine Protein Urine Ketones Urine Blood Urine Nitrite Urine Bilirubin Urine Urobilinogen Urine Microscopic RBC Urine WBC Urine Microscopic WBC Ur Epithelial Cells Urine Bacteria Urine Glucose Crossmatch 09/27/18 09/27/18 09/27/18 06:47 06:47 07:30 WBC RBC Hgb Hct MCV MCH MCHC RDW Std Deviation Plt Count MPV Immature Gran % (Auto) Neut % (Auto) Lymph % (Auto) [place] % (Auto) Eos % (Auto) Baso % (Auto) Immature Gran # (Auto) Neut # (Auto) Lymph # (Auto) [place] # (Auto) Eos # (Auto) Baso # (Auto) Corrected WBC (Man) PT INR PTT (Actin FS) Specimen Type Sample Site pH pCO2 pO2 HCO3 Base Excess Oxyhemoglobin ABG O2 Sat (Calculated) ABG O2 Saturation ABG Carboxyhemoglobin ABG Methemoglobin Yuniel Test A-a O2 Difference Total Hemoglobin Lactate Liter Flow Blood Gas Modality FiO2 % Sodium Potassium Chloride Carbon Dioxide Anion Gap BUN Creatinine Estimated GFR/1.73 m2 BUN/Creatinine Ratio Glucose Calculated Osmolality Calcium Total Bilirubin AST ALT Alkaline Phosphatase Troponin T 0.518 H* Nam-P-Cmjxnuhrfsu Pept Total Protein Albumin Globulin Albumin/Globulin Ratio Urine Source CLEAN CATCH Urine Color ORANGE Urine Clarity CLEAR Urine pH 6.0 Ur Specific [place] 1.020 Urine Protein TRACE A Urine Ketones TRACE A Urine Blood SMALL A Urine Nitrite NEGATIVE Urine Bilirubin NEGATIVE Urine Urobilinogen 1.0 Urine Microscopic RBC 10-20 A Urine WBC NEGATIVE Urine Microscopic WBC <10 Ur Epithelial Cells <10 Urine Bacteria NEGATIVE Urine Glucose NEGATIVE Crossmatch See Detail Orders Category Date Time Status Daily Weights 0500 Care 09/27/18 10:20 Active Intake and Output-Strict ORDERED Care 09/27/18 10:20 Active Nursing- MD Consult Request ROUTINE Care 09/27/18 10:20 Active Old records/chart to unit .From other facility Care 09/27/18 10:15 Active Transfuse .Give-Transfuse Care 09/27/18 10:23 Active MD [Physician/Provider Consults] Routine Cons 09/27/18 10:19 Ordered cxr [CHEST-1 VIEW] [RAD] Stat Exams 09/27/18 03:15 Completed ABG [RESP] Routine Lab 09/27/18 04:08 Completed BASIC METABOLIC PANEL [CHEM] Routine Lab 09/28/18 06:00 Ordered BLOOD CULTURE [BLDCUL] Stat Lab 09/27/18 05:20 Received BNP [PRO B-NATRIURETIC PEPTIDE] Stat Lab 09/27/18 06:47 Completed CBC WITH ELECTRONIC DIFF [HEME] Stat Lab 09/27/18 06:47 Completed CBC WITH NO DIFF [HEME] Routine Lab 09/28/18 06:00 Ordered CK PROFILE [SP CHEM] Q8H Lab 09/27/18 10:16 Ordered CK PROFILE [SP CHEM] Q8H Lab 09/27/18 18:16 Ordered CK PROFILE [SP CHEM] Q8H Lab 09/28/18 02:16 Ordered COMPREHENSIVE METABOLIC PANEL [CHEM] Stat Lab 09/27/18 06:47 Completed MAGNESIUM [CHEM] Routine Lab 09/28/18 06:00 Ordered PROTIME WITH INR [COAG] Stat Lab 09/27/18 06:47 Completed PTT [COAG] Stat Lab 09/27/18 06:47 Completed RBC [LRPC (RED CELLS)] [BBK] Stat Lab 09/27/18 06:47 Results TROPONIN T Q8H Lab 09/27/18 10:16 Ordered TROPONIN T Q8H Lab 09/27/18 18:16 Ordered TROPONIN T Q8H Lab 09/28/18 02:16 Ordered TROPONIN T Stat Lab 09/27/18 06:47 Completed TYPE & SCREEN [BBK] Stat Lab 09/27/18 06:47 Results Aspirin Med 09/27/18 09:05 Discontinued 325 mg PO NOW ONE Aspirin EC Med 09/28/18 09:00 Ordered 81 mg PO DAILY Atorvastatin Calcium [Lipitor] Med 09/27/18 21:00 Ordered 80 mg PO HS CefTRIAXONE [Rocephin] 1 gm Med 09/27/18 04:30 Discontinued 0.9% Sodium Chloride Inj [Ns] 50 ml IV NOW Furosemide [Lasix] Med 09/27/18 09:13 Discontinued 20 mg IV NOW ONE Furosemide [Lasix] Med 09/27/18 10:25 Discontinued 40 mg IV NOW ONE Furosemide [Lasix] Med 09/27/18 10:45 Ordered 40 mg IV Q12H Hydrocodone/APAP 5 mg/325 mg [[place]-5] Med 09/27/18 08:45 Discontinued 1 each PO NOW ONE Ipratropium/Albuterol INH [Combivent Respimat Inhaler] Med 09/27/18 10:28 Ordered DOSE puff INH Q4-6H PRN PRN Iron Carbonyl/Ascorbic Acid [Icar-C] Med 09/27/18 21:00 Ordered DOSE each PO BID Levothyroxine [Synthroid] Med 09/27/18 10:30 Ordered 50 microgm PO DAILY Metoprolol Succinate E.r. [Toprol Xl] Med 09/28/18 09:00 Ordered DOSE mg PO DAILY Nitroglycerin Sl [Nitroglycerin] Med 09/27/18 10:28 Ordered DOSE mg SL Q5M PRN PRN Pantoprazole [Protonix] Med 09/28/18 07:00 Ordered 40 mg PO DAILY@0700 Spironolactone [Aldactone] Med 09/27/18 10:30 Ordered 12.5 mg PO DAILY Ticagrelor [Brilinta] Med 09/27/18 21:00 Ordered 90 mg PO BID EKG [EKG] Routine Ther 09/28/18 06:00 Ordered EKG [EKG] Stat Ther 09/27/18 03:14 Draft EKG [EKG] Stat Ther 09/27/18 09:42 Draft Limited Echocardiogram Stat Ther 09/27/18 10:26 Ordered Result Diagrams: 09/27/18 06:47 09/27/18 06:47 - REASSESSMENT Reassessment #1 Time Reassessed: 08:00 Reassessment Comment: abnl EKG, troponin ordered Reassessment #2 Time Reassessed: 09:00 Status: unchanged (troponin elevated 0.5, pain in right shoulder, given NOrco 5. tried to transfer to [facility] per pt's wishes but told no bed except stemi. ) Reassessment #3 Time Reassessed: 09:16 Status: unchanged (Dr Trevizo orders Lasix and support BP w/ Dopamin if nescessary) Reassessment Comment: Dr Trevizo says pt can be transfered to [facility] as is estabed w/ Dr Shepard Reassessment #4 Time Reassessed: 09:30 Status: unchanged ([facility] transfer center at [facility] [place] says administration will not allow transfer of this pt yet as is not a STEMI even though pt needs repeat cath and probable stint placement.) Reassessment #5 Time Reassessed: 10:40 (LEUKOCYTOSIS,LACTIC ACIDOSIS, ?COMPONENT PNEUMONIA?) Reassessment Comment: NON-STEMI IN, SUBENDOCARDIAL IN, ELEV TROP, LEUKOCYTOSIS, CARDIOMEGALLY, - EKG 1 Time of EKG reading by physician:: 03:04 (reda by dr Viveros) EKG Interpretation (*Must complete 3 of following elements*): Abnormal Rate: 65 Rhythm: junctional [place]: left ST Wave: depressed Comments: reviewed by RWS at 0800 and serum troponin ordered at that time 2 Time of EKG reading by physician:: 10:15 EKG Read and Signed by:: Antonino Huston EKG Interpretation (*Must complete 3 of following elements*): Abnormal Rate: 71 Rhythm: JUNCTIONAL [place]: left ST Wave: depressed (JUNCTIONAL , SUBENDOCARDIAL ANTERIOR, LONG QT.) - XRAY 1 XRAY Study: Chest Impression: Abnormal (cardiomegaly with edema) - CONSULTS/PCP/HOSPITALIST Notification #1 *Consult/PCP/Hospitalist*: REILLY ACCEPTS TO DR ADAME Time Discussed: 10:35 (DR TREVIZO orders admit to ICU) Consult Disposition: Admit - CHANGE OF SHIFT REPORT (ED Provider) Report Given and Care Transferred to:: Dr Huston Time of Transfer: 07:00 Departure - Departure Date of Disposition Decision: 09/27/18 Time of Disposition Decision: 10:36 DIAGNOSIS: Subendocardial IN first episode care, Anemia, CHF (congestive heart failure) Disposition: ADMITTED INPATIENT 09 Certified Medical Emergency: Emergent Condition: Fair Referrals and Follow-Ups: Bubba Shepard MD [Primary Care Provider] - - Critical Care Note This patient required my direct & personal management of CC.: No Attestation - Physician/ YAKELIN Attestation Patient care was provided by Advanced Practice Provider:: No The physician spent face to face time with patient:: Yes Advanced Practice Provider documentation review:: Supervising physician onsite and consulted in the evaluation and care of this patient. The physician did have a face to face encounter with the patient.
--- NOTE | 2018-09-27 07:13 | EKG Report ---
Test Performed on : 09/27/2018 03:04:58 AM Test Reason : CP Blood Pressure : / mmHG Vent. Rate : 065 BPM Atrial Rate : 067 BPM P-R Int : 000 ms QRS Dur : 110 ms QT Int : 504 ms P-R-T Axes : 000 -31 270 degrees QTc Int : 524 ms Junctional rhythm. with premature ventricular complexes. or fusion complexes Left axis deviation Marked ST abnormality, possible anterolateral subendocardial injury Prolonged QT Abnormal ECG When compared with ECG of 08-SEP-2018 11:03, (Unconfirmed) Junctional rhythm. has replaced Electronic ventricular pacemaker Unconfirmed Result
[2018-09-27 07:25] LABS: AGAP 15; ALB/GLOB RATIO 1.2; ALBUMIN 3.3 g/dL (3.5-5.0); ALKALINE PHOSPHATASE 111 U/L (32-122); BUN 17 mg/dL (8-22); CALCIUM 8.4 mg/dL (8.8-10.2); CHLORIDE 104 mmol/L (98-107); COSMO 281; CREATININE 0.9 mg/dL (0.7-1.2); ESTIMATED GFR > 60; GLUCOSE 124 mg/dL (70-104); GOT 40 U/L (10-34); GPT 19 U/L (10-44); POTASSIUM 3.9 mmol/L (3.5-5.1); SODIUM 139 mmol/L (136-145); TCO2 20 mmol/L (25-35); TOTAL BILIRUBIN 1.15 mg/dL (0.20-1.00)
[2018-09-27 07:31] LABS: BASO# 0.02 X1000 (0.0-0.2); BASO% 0.2 % (0.0-0.8); EOS# 0.04 X1000 (0.0-0.7); EOS% 0.3 % (0.0-10.0); HEMATOCRIT 25.8 % (42.0-52.0); HEMOGLOBIN 7.9 g/dL (14.0-18.0); IMM GRAN# 0.05 X1000 (0.0-0.04); IMM GRAN% 0.4 % (0.0-0.5); LYMPH# 1.42 X1000 (1.2-3.4); LYMPH% 11.6 % (20.5-51.1); MCH 31.2 PG (27-31); MCHC 30.6 g/dL (33-37); MONO# 1.36 X1000 (0.11-0.59); MONO% 11.1 % (1.7-9.3); MPV 9.5 FL (7.4-10.4); NEUT# 9.32 X1000 (1.4-6.5); NEUT% 76.4 % (42.2-75.2); PLT 281 X1000 (130-400); RBC 2.53 XMIL (4.7-6.1); RDW 16.3 % (11.5-14.5); WBC 12.21 X1000 (4.8-10.8)
[2018-09-27 07:33] LABS: URINE SOURCE CLEAN CATCH
[2018-09-27 07:55] LABS: BILIRUBIN URINE NEGATIVE (NEGATIVE); BLOOD URINE SMALL (NEGATIVE); CLARITY CLEAR (CLEAR); COLOR ORANGE; GLUCOSE URINE NEGATIVE (NEGATIVE); KETONE URINE TRACE mg/dL (NEGATIVE); LEUKOCYTES URINE NEGATIVE (NEGATIVE); NITRITE URINE NEGATIVE (NEGATIVE); PROTEIN URINE TRACE mg/dL (NEGATIVE)
[2018-09-27 08:07] LABS: URINE BACTERIA NEGATIVE /HFP; URINE EPITHELIAL CELLS <10 /HPF (<10); URINE WBC <10 /HPF (<10)
[2018-09-27] MEDS ORDERED: NORCO-5 PO ONE (08:45)
[2018-09-27] MEDS ORDERED: ASPIRIN PO ONE (09:05)
[2018-09-27] MEDS ORDERED: LASIX IV ONE ×2 (09:13→10:25)
--- NOTE | 2018-09-27 10:10 | EKG Report ---
Test Performed on : 09/27/2018 09:52:17 AM Test Reason : elevated troponin Blood Pressure : / mmHG Vent. Rate : 071 BPM Atrial Rate : 061 BPM P-R Int : 000 ms QRS Dur : 108 ms QT Int : 500 ms P-R-T Axes : 000 -37 227 degrees QTc Int : 543 ms Accelerated Junctional rhythm. with occasional ventricular-paced complexes and premature supraventric ular complexes. Left axis deviation Marked ST abnormality, possible anterior subendocardial injury Prolonged QT Abnormal ECG When compared with ECG of 27-SEP-2018 03:04, (Unconfirmed) Electronic ventricular pacemaker has replaced Junctional rhythm. Unconfirmed Result
[2018-09-27] MEDS ORDERED: DUONEB (A & A) INH PRN (10:28)
[2018-09-27] MEDS ORDERED: NITROGLYCERIN SL PRN (10:28)
--- NOTE | 2018-09-27 10:55 | CARDIOLOGY CONSULTATION ---
DATE: 09/27/2018 REASON FOR CONSULTATION: Cardiology was consulted for pulmonary edema, anemia, non-Q-wave myocardial infarction. HISTORY OF PRESENT ILLNESS: Mr. Donta Arreguin is a 77-year-old gentleman, who was discharged from [facility] yesterday, went home and came back with increasing episodes of retrosternal chest discomfort, generalized body ache, and weakness, came to the emergency room and was noted to be in heart failure, and was hypotensive as well with the blood pressure varying anywhere from 80 systolic going up to 100 systolic. Patient was in pulmonary edema, was given Lasix 40 mg intravenously. When he was here recently, he was in with GI bleed. He is on multiple anticoagulation therapy given his atrial fibrillation and recent intervention. He was on Eliquis, Brilinta, and aspirin. He had an upper GI endoscopy on 09/25/2018 for melena. Upper GI endoscopy revealed antral gastritis and hiatal hernia. There was no active bleeding. The patient has a complicated history. He has known coronary artery disease, coronary artery bypass grafting, was admitted with non-Q-wave myocardial infarction and underwent angioplasty around September [address] [place] [address] White. I do not have details of that intervention. The rest of the past medical history as below. At the time of my examination, patient says he was comfortable. He has shortness of breath. Denied any chest pain at the present time. As far as his shortness of breath is concerned, after he received the Lasix, he says he has feels better. There is no palpitations. Denies syncope. PAST MEDICAL HISTORY: 1. Coronary artery disease, status post coronary artery bypass grafting in 2011 with BOSS to left anterior descending artery, saphenous vein graft to obtuse marginal artery. RCA was occluded. 2. He had non-Q-wave myocardial infarction. Subsequently, this was in 09/07/2017. He was transferred to [facility], underwent coronary intervention by Dr. White. Will request records of the same. 3. Atrial fibrillation. 4. History of recent gastrointestinal bleed. 5. Permanent pacemaker implantation for sick sinus syndrome on 06/15/2016. 6. History of atrial flutter. 7. Recent upper GI endoscopy as above. 8. Hypertension. 9. Hyperlipidemia. HOME MEDICATIONS: Levothyroxine 50 mcg, isosorbide extended release 90, atorvastatin 80, metoprolol 50 mg daily, Lasix 80 mg a day, Combivent inhalers, Protonix 40, enteric-coated aspirin, and Brilinta 90 mg p.o. b.i.d., spironolactone 25, iron carbonyl. Given his recent GI bleed, his Eliquis was held, and the patient was recommended dual antiplatelet therapy at least for 6 months, given his recent intervention. PHYSICAL EXAMINATION: At the time of my examination, blood pressure was 95/47. First and second heart sounds. Sounds were heard. Jugular venous pressure was elevated. There was decreased breath sounds bilaterally with right greater than left with bilateral crepitations. Abdomen was soft, nontender. There was no guarding or rigidity. Bowel sounds were heard.Central nervous system: Alert and oriented. Was moving all 4 extremities. Examination of extremities revealed no pedal edema. HEENT: Atraumatic, normocephalic. Pupils were reacting to light. SOCIAL HISTORY: Patient is . His is bed bound. He has 3 grown up children. He quit smoking 18 years ago. LABORATORY DATA: Sodium 139, potassium 3.9, BUN 17, creatinine 0.8. Total bilirubin 1.1. AST 40, ALT 19. ProBNP elevated at 9818. Troponin abnormal at 0.518. Hematology: Hemoglobin 7.9, hematocrit 25.8, platelet count of 281. Chest x-ray: Cardiomegaly with pulmonary edema. ASSESSMENT AND PLAN: Mr. Donta Arreguin is a 77-year-old gentleman with history of coronary artery disease, coronary artery bypass grafting, and non-Q-wave myocardial infarction and recent intervention in September 2017 at [facility] by Dr. White. Has history of atrial flutter/fibrillation, permanent pacemaker implantation. Was recently admitted and discharged with gastrointestinal bleed as well as was in heart failure. The patient was discharged home, readmitted with increasing chest pain and has abnormal troponin. As far as the troponin is concerned, this is higher during his last recent admissions. PLAN AND RECOMMENDATIONS: 1. The patient is severely anemic. It is likely to be having ongoing GI bleed. We will get stools for occult blood. We will also give him blood transfusion. 2. As far as medications are concerned, he was hypotensive when he came to the emergency room and currently he has tenuous blood pressure. We will admit him to ICU and give him dopamine if required. 3. We will put him on Lasix 40 mg IV q.8 with potassium supplements. 4. As far as his antiplatelet therapy is concerned, he has had coronary artery bypass grafting with recent intervention. He was earlier on aspirin, Brilinta, and Eliquis, was discharged home yesterday on aspirin and Brilinta. We will continued dual antiplatelet therapy. In addition, we will consult [facility]. 5. He also has history of bilateral carotid end arterectomy. No new symptoms. 6. We will get a limited echocardiogram to assess his left ventricular ejection fraction and get serial cardiac enzymes. We will also get blood work following his blood transfusion in the morning. 7. He is on medications for hyperlipidemia at Lipitor 80. Would recommend continuing that. 8. Levothyroxine for hypothyroidism, continue. 9. He is also on beta-blockers. We will continue the same. We will get a chest x-ray in the morning. Thank you for the consult. We will follow hospital course. cc: Domingo Trevizo MD
[2018-09-27] MEDS ORDERED: CLINDAMYCIN IM ONE (11:06)
[2018-09-27] MEDS ORDERED: TORADOL IM ONE (11:06)
[2018-09-27] MEDS ORDERED: NS 250 ML ONE (11:20)
[2018-09-27 12:30] LABS: IRON SATURATION 13 %; TIBC 223 ug/dL; TOTAL IRON 29 ug/dL (53-167); UNBOUND IRON 194 ug/dL (112-346)
[2018-09-27] MEDS ORDERED: PROTONIX IV SCH (12:30)
[2018-09-27] MEDS ORDERED: SODIUM CHLORIDE 0.9% INJ SCH (12:30)
[2018-09-27 12:48] LABS: CK-MB 21.02 ng/mL (0.0-5.0)
--- NOTE | 2018-09-27 12:48 | HISTORY AND PHYSICAL ---
PRIMARY CARE PHYSICIAN: Dr. Bubba Shepard. CHIEF COMPLAINT: Chest pain. HISTORY OF PRESENT ILLNESS: Mr. Arreguin is a 77-year-old male who was discharged from our service yesterday. He has a complex medical history. He recently had a non -Q-wave UT on 09/07/2018 requiring PCI at [facility]. He returned on the of this month to our facility for weakness and dark tarry stools and was found to be anemic. At that time, he was on dual-antiplatelet therapy as well as Eliquis. GI was consulted and EGD was done which did not show anything acute. He was discharged yesterday only with dual- antiplatelet therapy. Eliquis was stopped. Last night, he started having intermittent episodes of chest pain retrosternal in nature with increasing dyspnea and weakness. This progressed overnight into the morning, and he came to the ER for evaluation. Blood work here in the ER revealed continued anemia as well as non-Q-wave UT. He is also hypotensive. Initially, the plan was to transfer the patient to [facility]. However, at this time they were unable to accept the patient due to having no beds. They are only accepting level [address]-elevation UT. The plan then is to admit the patient to our ICU, give him blood products, IV Lasix, and reassess his cardiac status. PAST MEDICAL HISTORY: 1. Recent non-STEMI with PCI a [facility]. 2. Recent admission to our facility with reports of melena and anemia. 3. Coronary artery disease. 4. Hyperlipidemia. 5. Hypertension. 6. COPD. 7. Hypothyroidism. 8. History of paroxysmal atrial flutter. SURGICAL HISTORY: He has had CABG, coronary stent, permanent pacemaker placement, cholecystectomy. FAMILY HISTORY: Noncontributory. SOCIAL HISTORY: He is , lives with his . No tobacco, alcohol, or drug use. ALLERGIES: No known drug allergies. HOME MEDICATIONS: 1. Aspirin 81 mg daily. 2. Lipitor 80 mg p.o. at bedtime. 3. Lasix 80 mg daily. 4. Ipratropium/albuterol one inhaler q. 4-6 h. 5. Icar-C one b.i.d. 6. Isosorbide mononitrate 90 mg p.o. daily. 7. Levothyroxine 50 mcg daily. 8. Toprol XL 50 mg daily. 9. Nitrostat 0.4 mg sublingual every 5 minutes as needed. 10. Protonix 40 mg daily. 11. Aldactone 12.5 mg daily. 12. Brilinta 90 mg p.o. b.i.d. REVIEW OF SYSTEMS: Fourteen-point review of systems obtained, found to be negative with the exception of the HPI. PHYSICAL EXAMINATION: VITAL SIGNS: Blood pressure is 106/60, heart rate is 64, respiratory rate is 25 , O2 sat 96% on nasal cannula, temperature 98.1. GENERAL: This is an elderly 77-year-old male lying in a hospital bed in no acute distress. NEUROLOGIC: Awake, alert, and oriented. Follows commands without focal deficits. HEENT: Head atraumatic and normocephalic. His pupils are equal, round and reactive to light. Oral mucosa is pale and dry. NECK: There is no JVD. CHEST: Diminished at the bases with bibasilar crackles. CV: Regular rate and rhythm, S1, S2 noted. GI: Soft, nondistended, nontender. Bowel sounds are active. EXTREMITIES: Trace edema bilaterally. Pulses diminished. DIAGNOSTIC DATA: Chest x-ray shows cardiomegaly and pulmonary edema. EKG shows apparent junctional rhythm. No clear P waves are discernible. He has diffuse and marked ST and T abnormalities. WBC 12.21, hemoglobin 7.9, hematocrit 25.8, MCV 102, platelet count 281. INR 1.03. ABG on nasal cannula: pH 7.46, pCO2 is 27, O2 is 59, bicarbonate 21.8, lactic acid 3.1. Sodium 139, potassium 3.9, chloride 104, CO2 of 20, anion gap 15, BUN 17, creatinine 0.9, glucose 124, calcium 8.4. T-bili 1.5, AST 40, ALT 19, alkaline phosphatase 111. Troponin 0.518. ProBNP 9818. Protein 6. ASSESSMENT AND PLAN: 1. Itn-[id number] myocardial infarction: The patient does have pulmonary edema, elevated cardiac enzymes, abnormal EKG. At this time, the decision by Cardiology is not to anticoagulate but to continue with dual-antiplatelet therapy given his recent GI bleeding and severe anemia. There is also a possibility of type 2 UT with profound anemia. An echocardiogram has been ordered, and blood products have been ordered with Lasix in between doses. Will trend his enzymes, EKGs monitor his blood pressure and cardiac output carefully. Should he need inotropic support, will put him on dopamine. We will put him in the ICU. 2. Anemia secondary to gastrointestinal bleeding: Will consult Dr. Galvez with GI and put him on b.i.d. Protonix intravenously. 3. Congestive heart failure: Lasix has been given. Will continue to follow his I's and O's and daily weights. 4. Acute blood loss anemia. Continue with blood product transfusion with Lasix in between. 5. DVT prophylaxis with SCDs Further recommendations to follow. Dictated by JOSE Navarro for Charlie Oliva MD cc: JOSE Navarro Agree with above H and P. The following is my own face to face evaluation. Patient with both recent cardiac stent and recent GI bleed. off eliquis but has been on aspirin and brilinta. H/H only minimally decreased from discharge but troponin elevated and increasing in the setting of chest pain. discussed with cardiology who recommend transfusion, continuing antiplatelet drugs, and re-attempting transfer if troponin continues to trend up or further EKG changes develop. on exam patient is currently comfortable with heart: RRR. some bibasilar crackles on lung exam. trace to 1+ LE edema. MTDD
[2018-09-27 12:53] LABS: FERRITIN 126 ng/mL (30-400)
[2018-09-27] MEDS: SYNTHROID PO SCH (14:15)
[2018-09-27] MEDS: ALDACTONE PO SCH (14:15)
[2018-09-27] MEDS: LASIX IV SCH ×2 (16:00→23:18)
[2018-09-27] MEDS: PROTONIX IV SCH (18:01)
--- NOTE | 2018-09-27 20:03 | ECHO REPORT ---
ORDER DATE: 09/27/2018 INDICATION: A 77-year-old male with CHF, stents, dyspnea. M-MODE MEASUREMENTS: Left ventricle end diastole: 4.9. Left ventricle end systole: 3.3. Posterior wall: Grossly estimated at 1.4. Interventricular septum: 1.4. (these measurements are not very accurate because of poor visualization of the endocardium). Left atrium: 4.3. Aortic root: 2.7. SUMMARY OF 2-DIMENSIONAL IMAGIN. The study is technically difficult. Globally, left ventricular systolic function appears to be mildly decreased in the range of 50% to 55%. Questionable hypokinesis of the inferior posterior wall. 2. The aortic valve shows sclerosis of the cusps without stenosis. 3. The mitral annulus shows moderate calcification. Color flow mapping indicates a mild to moderate degree of regurgitation. 4. Pulsed wave Doppler of mitral inflow shows a single filling wave. The patient appears to be in atrial fibrillation. 5. Diastolic function cannot be evaluated in this case. 6. The tricuspid valve shows a mild degree of regurgitation. Pulmonary pressure estimated at 58 to 63 mmHg. 7. The pulmonic valve shows a mild degree of respiratory rate. 8. There is no pericardial effusion. No masses, no thrombus. Clinical correlation recommended. cc: MD Daria Matute PA
[2018-09-27] MEDS: ICAR-C PO SCH (21:17)
[2018-09-27] MEDS: BRILINTA PO SCH (21:18)
[2018-09-27] MEDS: LIPITOR PO SCH (21:18)
[2018-09-28] MEDS: PROTONIX IV SCH ×2 (03:25→17:15)
[2018-09-28] MEDS: SODIUM CHLORIDE 0.9% INJ SCH (03:25)
--- NOTE | 2018-09-28 05:08 | CONSULTATION ---
DATE OF CONSULTATION: 09/27/2018 REASON FOR CONSULTATION: Anemia. HISTORY OF PRESENT ILLNESS: Mr. Arreguin is a 77-year-old male, who was admitted on 09/26/2018 for chest pain. He was noted to have elevated troponin's. His labs showed evidence of low hematocrit of 25%. The patient was discharged 2 days ago when he was admitted for melena. He had an EGD done which showed evidence of antral gastritis with no active bleeding. The patient has had a colonoscopy done 2 years ago at [facility]. Currently, the patient's results are normal. The patient denies any vomiting blood or passing blood in the stools. He was noted to be hypotensive, anemic and had elevated troponin's during this admission. Cardiology has been working him up. He has been diagnosed with non ST-elevation IL. Gastroenterology consulted for further management. PAST MEDICAL HISTORY: Recent non STEMI with PCI at [facility] a few weeks ago. Anemia, melena, coronary disease, hypertension, hyperlipidemia, COPD, hypothyroidism and paroxysmal atrial fibrillation. PAST SURGICAL HISTORY: CABG, coronary stent, permanent pacemaker placement and cholecystectomy. FAMILY HISTORY: Noncontributory. SOCIAL HISTORY: He is . His family is supportive and present at bedside. I spoke to the patient's son and daughter. No history of tobacco, alcohol or illicit drugs. ALLERGIES: No known drug allergies. MEDICATIONS AT HOME: List of medications at home include: 1. Aspirin. 2. Lipitor. 3. Lasix. 4. Iron C b.i.d. 5. Ipratropium/albuterol inhaler every 4 to 6 hours. 6. Isosorbide mononitrate. 7. Levothyroxine. 8. Toprol-XL. 9. Nitrostat. 10. Protonix. 11. Aldactone. 12. Brilinta 90 mg p.o. b.i.d. REVIEW OF SYSTEMS: Denies any current fevers, rigors, or chills. He did have chest pain on admission, but right now he is chest pain-free. Denies any resting shortness of breath. At home, he did feel dizzy and had shortness of breath, and weak at home. Currently, he is feeling better. He is receiving blood transfusion. He denies any nausea, vomiting, vomiting blood, or passing blood in the stools. He does have dark stools. He is also on iron. He denies any other neurologic complaints. He denies any history of other NSAIDs for arthritis. MEDICATIONS IN HOSPITAL: 1. Nitroglycerin. 2. Albuterol/ipratropium. 3. Aspirin 81 mg every day. 4. Lipitor. 5. Lasix. 6. I-Car C. 7. Synthroid. 8. Metoprolol. 9. Aldactone. 10. Brilinta. 11. The patient is currently NPO PHYSICAL EXAMINATION: Vital Signs: Temperature of 98.2 degrees, pulse rate 61, respiratory rate 20, blood pressure 140/58, saturating 99% on 3 nasal cannula. Body weight of 200 pounds. BMI 29.5 kg/m2. General: Moderately built, moderately nourished, lying in bed in no acute distress. HEENT: Pale conjunctivae. No icterus. Pupils equal and reactive to light. Neck: Supple. Abdomen: Soft, nontender, and nondistended. No guarding. No rebound. Extremities: No cyanosis or clubbing. Neurologic: Alert, awake, and oriented. LABORATORY: Hemoglobin and hematocrit is 7.9 and 25.8, white count of 12.2, and platelet count of 281,000. MCV of 102. PT of 14.3, INR 1.03. PTT of 35.7. ABG showing pH 7.46, pCO2 27, PO2 of 59. This is on 28% FiO2. Lactate of 3.1. Sodium 139, potassium 3.9, chloride 104, bicarbonate 20, anion gap 15, BUN of 17, creatinine 0.9, glucose of 124. Calcium is 8.4. Iron level of 29% measuring 13%. Ferritin level of 126. Total bilirubin is 1.15. AST 40. ALT 19. Alkaline phosphatase 111. Total protein is 6 and albumin of 3. B12 323. Folate of 11.4. Urinalysis showing trace protein, trace ketones, small blood, 10-20 white cells. His blood cultures have been drawn. They are currently pending. DIAGNOSTIC: X-ray of the chest showed cardiomegaly with pulmonary edema. There is small left pleural effusions. Left-sided pacemaker is seen, and sternal wires are present. IMPRESSION AND PLAN: 1. Anemia. 2. Dark stools. 3. Coronary artery disease status post PCI a few weeks ago on aspirin and Brilinta. 4. Congestive heart failure. RECOMMENDATIONS: 1. We agree with the transfusion. We will need to keep the hematocrit more than 27%. The patient has macrocytic anemia. His iron studies show mild iron deficiency. He also has a high MCV of 102. His B12 and folate are normal. We will call a Hematology consult for further workup. His EGD was done 2 days ago which shows antral gastritis with no active bleeding. The last colon was 2 years ago so we will obtain the results of the colonoscopy. The risks of doing any endoscopic procedures is high because of ongoing cardiac pathology in the form of non ST elevation IL. We will treat him with PPIs b.i.d. and Carafate. We would like to give him iron infusions if okay with Hematology team. 2. He also will benefit from echocardiogram to see the ejection fraction. 3. The patient will continue on gastroesophageal reflux lifestyle changes. Avoid excessive tea, coffee, soda, tomatoes, onions, or spicy foods. 4. The above plans discussed with the patient and family at bedside. All questions answered. I spoke with the patient's nurse. Please call with any further questions. cc: MD Bubba Logan MD Ashish K. Basu, MD
[2018-09-28 05:48] LABS: HEMATOCRIT 32.7 % (42.0-52.0); HEMOGLOBIN 10.5 g/dL (14.0-18.0); MCH 31.1 PG (27-31); MCHC 32.1 g/dL (33-37); MCV 96.7 FL (81-99); MPV 9.6 FL (7.4-10.4); RBC 3.38 XMIL (4.7-6.1); RDW 17.8 % (11.5-14.5); WBC 10.93 X1000 (4.8-10.8)
[2018-09-28] MEDS ORDERED: NEO-SYNEPHRINE 50 MG in NS 250 ML IV SCH ×2 (06:00→07:00)
[2018-09-28 06:10] LABS: AGAP 14; BUN 20 mg/dL (8-22); CALCIUM 8.4 mg/dL (8.8-10.2); CHLORIDE 103 mmol/L (98-107); COSMO 285; CREATININE 0.8 mg/dL (0.7-1.2); ESTIMATED GFR > 60; GLUCOSE 114 mg/dL (70-104); MAGNESIUM 1.7 mg/dL (1.5-2.7); POTASSIUM 3.1 mmol/L (3.5-5.1); SODIUM 141 mmol/L (136-145); TCO2 24 mmol/L (25-35)
[2018-09-28] MEDS: SYNTHROID PO SCH (06:21)
[2018-09-28] MEDS ORDERED: PROTONIX PO SCH (07:00)
--- NOTE | 2018-09-28 07:22 | Diag Imaging Result Doc PS360 ---
EXAM: CHEST-PORTABLE 09/28/2018 HISTORY: dyspnea, chf TECHNIQUE: AP portable at 0521 COMMENT: There is cardiomegaly. Compared to the previous examination of 09/27/2018, the pulmonary edema which was present previously has improved slightly. IMPRESSION: Improved pulmonary edema. Electronically signed by Kraig Dempsey 09/28/2018 7:20 AM
--- NOTE | 2018-09-28 07:38 | EKG Report ---
Test Performed on : 09/28/2018 07:03:46 AM Test Reason : dyspnea, nstemi Blood Pressure : / mmHG Vent. Rate : 060 BPM Atrial Rate : 060 BPM P-R Int : 000 ms QRS Dur : 186 ms QT Int : 538 ms P-R-T Axes : 000 -61 122 degrees QTc Int : 538 ms Ventricular-paced rhythm 100% paced Left axis deviation Cannot rule out Inferior infarct , age undetermined Abnormal ECG When compared with ECG of 27-SEP-2018 09:52, (Unconfirmed) 100% pacing is new Confirmed by Juanita APPLE, Eliseo Pearson ([id number]) on 09/28/2018 8:14:44 AM
[2018-09-28] MEDS: CENTRUM SILVER PO SCH (08:22)
[2018-09-28] MEDS: ALDACTONE PO SCH (08:22)
[2018-09-28] MEDS: LASIX IV SCH ×2 (08:22→20:22)
[2018-09-28] MEDS: ASPIRIN EC PO SCH (08:22)
[2018-09-28] MEDS: ICAR-C PO SCH (08:22)
[2018-09-28] MEDS: BRILINTA PO SCH ×2 (08:25→20:23)
[2018-09-28] MEDS: POTASSIUM CHLORIDE 20 MEQ/SWI 20 MEQ/100 ML IVPB IV SCH ×2 (08:28→12:28)
--- NOTE | 2018-09-28 08:56 | PROGRESS NOTE ---
DATE: 09/28/2018 OVERNIGHT EVENT: Mr. Arreguin was admitted for non-ST elevation myocardial infarction, severe anemia and melena. There was no bed at [facility], and so he was admitted to ICU for further management. Overnight, he remained hypotensive with a mean arterial pressure in the 50s. However, in the morning time, his blood pressure had increased. SUBJECTIVE: The patient denies any chest pain, shortness of breath, palpitations, nausea, vomiting, dizziness, abdominal pain. He has not had any bowel movement since he has been in the hospital. We discussed about his critical condition and tenuous cardiac status. I answered all of his questions. Currently, vitals detected afebrile, temperature of 97.6 degrees, pulse of 60 per minute, which has ventricularly paced rhythm on EKG, blood pressure 120/60, saturating 95% on 2 L nasal cannula. General Examination: On physical examination, he does not appear in acute distress. HEENT: He has mild conjunctival pallor. Oral cavity is moist. Lungs: Air entry bilaterally equal. He does have bilateral infrascapular crackles. No wheezes or rhonchi. Heart: S1, S2 normal. Regular. No murmur, rub, or gallop. Abdomen: Soft, nontender. No jugular venous distention. Extremities: No lower extremity edema. LABS: Suggestive of resolution of leukocytosis, increasing hemoglobin to 10.5 from 7.9 after 2 units of PRBCs. Normal platelet count. Hypokalemia. Normal kidney function. Magnesium of 1.7. Continuously increasing troponin to 0.74. X-RAYS: EKG today morning had ventricularly paced rhythm. Chest x-ray had suggested improvement in pulmonary edema. MICROBIOLOGY: Blood culture noted. ASSESSMENT AND PLAN: 1. Non-ST elevation myocardial infarction with history of coronary artery bypass graft in 2011 and recent percutaneous coronary intervention in September 2018. Continue the patient on aspirin, Brilinta, high-dose statin, and beta blockers. The patient is not on anticoagulation as he is on dual anti-platelet therapy and has had a recent severe anemia episode in September 2018 requiring blood transfusion. Limited echocardiogram had questionable inferior posterior hypokinesia with ejection fraction of around 50 to 55 percent. Continue to trend troponins. Continue to monitor in intensive care unit for hypotension. 2. Bilateral pulmonary edema, though echocardiogram has mildly reduced ejection fraction. Repeat chest x-ray suggests improvement. Continue oxygenation through nasal cannula and intravenous Lasix for now. Continue albuterol ipratropium for acute hypoxic respiratory failure. 3. Anemia with history of melena with esophagogastroduodenoscopy only showing gastritis in September 2018. Continue intravenous Protonix twice daily. He is now status post 2 packed red blood cells. Continue iron carbonyl and ascorbic acid. Monitor daily complete blood count. Continue multivitamin. 4. History of hypothyroidism. Continue home levothyroxine. 5. Hypokalemia and low magnesium being repleted. 6. Disposition: The patient remains inside the intensive care unit for tenuous cardiac status. I would appreciate Cardiology recommendation about further intervention considering his slow rising troponin level, although patient denies any chest pain. TIME SPENT: More than 30 minutes of critical care time was spent in taking care of this patient. Next of kin surrogate decision maker is the patient's . However, patient wanted me to get in touch with his son if needed. cc: Aleksandr Sebastian MD MTDD
[2018-09-28] MEDS ORDERED: MAGNESIUM SULFATE 2 GM/S.W.I. 2 GM/50 ML IVPB IV ONE (09:00)
[2018-09-28] MEDS ORDERED: TOPROL XL PO SCH ×2 (09:00)
[2018-09-28] MEDS ORDERED: TYLENOL PO PRN (10:39)
[2018-09-28] MEDS: KLOR-CON PO SCH ×2 (11:31→14:31)
--- NOTE | 2018-09-28 14:59 | GASTROENTEROLOGY PROGRESS NOTE ---
DATE: 09/28/2018 SUBJECTIVE: He is resting in bed. He is feeling better. He is feeling stronger. Denies any nausea or vomiting. He denies any blood in the stools. He has not moved his bowels today. OBJECTIVE: Vital signs: Temperature of 97.6, pulse rate 60, respiratory rate 27, blood pressure 130/61, saturating 100%. General: He is moderately built, moderately nourished, lying in bed in no acute distress. HEENT: Pale conjunctivae. No icterus. Neck: Supple. Abdomen: Soft, nontender, nondistended, no guarding. Extremities: No cyanosis or clubbing. Neurologic: Alert, awake, and oriented. LABORATORY: Hemoglobin and hematocrit is 10.5 and 32.7, white count of 10.9, and platelet count of 271,000. Sodium 141, potassium 3.1, chloride 103, bicarbonate 24, anion gap 14, BUN of 20, creatinine 0.8, glucose of 114. Calcium is 8.4. Magnesium is 1.7. Troponin 0.745, slightly worsening than yesterday. DIAGNOSTIC: X-ray of the chest showed improved pulmonary edema. IMPRESSION AND PLAN: 1. Non ST elevation myocardial infarction. He has a history of coronary artery bypass grafting in 2011 and recent percutaneous coronary intervention in September. He is being followed by Cardiology team. 2. Bilateral pulmonary edema. He has congestive heart failure. His echocardiogram showed ejection fraction of 50% to 55%, tricuspid valve showed mild degree of regurgitation, and pulmonary pressure estimated at 58 to 63 mmHg. This could be on account of right-sided heart failure. 3. Anemia. He has no evidence of any gastrointestinal bleeding since admission. In fact, he has not had any bowel movement since admission. Will continue with supportive care. He is at high risk for any kind of endoscopic intervention, including colonoscopy. 4. Macrocytic and iron deficiency anemia. Hematology has been consulted. 5. Gastrointestinal prophylaxis with proton pump inhibitors. 6. Hypothyroidism. He is on levothyroxine. The above plans discussed with the patient and all questions answered. Please call us with any further questions. cc: MD Bubba Logan MD
[2018-09-28] MEDS ORDERED: NS IV ONE (18:00)
[2018-09-28] MEDS ORDERED: VENOFER IV ONE (18:00)
[2018-09-28] MEDS: LIPITOR PO SCH (20:22)
[2018-09-28] MEDS: TOPROL XL PO SCH (20:23)
--- NOTE | 2018-09-29 01:47 | HEMO/ONC CONSULTATION ---
DATE: 09/28/2018 CONSULTATION REQUESTED BY: Ed Galvez MD. REASON FOR CONSULTATION: Anemia. HISTORY OF PRESENT ILLNESS: Mr. Arreguin is a 77-year-old male who ran into trouble back at the beginning of September 2018 when he required a PCI at [facility] for a non-Q-wave MN. He then presented to [facility] on 09/22/2018 for weakness as well as dark tarry stools and profound anemia. He was evaluated and actually admitted to the hospital. At that time, he was on dual anti-platelet therapy as well as Eliquis. GI evaluated him and did an EGD. The patient was actually discharged on 09/26/2018 but reported back to the hospital on 09/27/2018 complaining of chest pain and increasing dyspnea and weakness. Prior to his discharge, the patient was discontinued off Eliquis due to his GI bleed. The patient continues on antiplatelet therapy as repeat evaluation now shows a non-Q-wave MN. He also has elevated cardiac enzymes. The patient was hypertensive on admission and again anemic. He has been given 2 units of packed red blood cells, and his hemoglobin has improved to 10. He was found to be iron deficient based off labs. We have been asked to evaluate him for further management assistance. PAST MEDICAL HISTORY: 1. Recent non-STEMI with PCI at [facility]. 2. Recent admission for melena and anemia. 3. Coronary artery disease. 4. Hyperlipidemia. 5. Hypertension. 6. Hypothyroidism. 7. History of paroxysmal atrial flutter. 8. COPD. SURGICAL HISTORY: Positive for CABG, permanent pacemaker, cholecystectomy, and recent PCI as per above. FAMILY HISTORY: Reviewed, but no family history of significant GI bleeds. SOCIAL HISTORY: The patient is and lives with his . He denies any tobacco, alcohol, or illicit drug use. REVIEW OF SYSTEMS: Twelve-point review of systems has been completed and negative except as expressed in HPI. PHYSICAL EXAMINATION: Vital Signs: Temperature 97.6 degrees, heart rate 62, respirations 23, blood pressure 128/69, O2 saturation 99% on 2 L nasal cannula. General: This is a male lying in the hospital bed. He has some family members at bedside. He is in no acute distress. HEENT: Head: Normocephalic, atraumatic. Eyes: Pupils equal, round, reactive. Ears, nose, throat, neck, and mouth: Oral mucosa is normal. Gross auditory acuity is intact. Cardiovascular: S1, S2 heard. No murmurs, gallops, or rubs appreciated. Respiratory: Chest is clear. Normal respiratory effort. Abdomen: Soft, with positive bowel sounds noted. Musculoskeletal: No bony abnormalities. Extremities: Some trace edema. Neurologic: The patient is alert and oriented. LABORATORIES AND STUDIES: White blood cells 10.93, hemoglobin 10.5, hematocrit 32.7, platelet count 271,000. Sodium 141, potassium 3.1 chloride 103, CO2 of 24, BUN 20, creatinine 0.8, glucose 114. Iron 29, TIBC 223, iron saturation percent is 13, ferritin 126. Troponin is 0.648 and then 0.743. ASSESSMENT AND PLAN: 1. Anemia. On review of the patient's history, he does have a normal hemoglobin previously. It appears that he likely just has anemia related to blood loss. We would recommend to replete iron. We would recommend not repleting with oral iron as it can change stool consistency and color. We can go ahead and give the patient a dose of IV iron. Would continue to support him with blood transfusions as needed. Given his cardiac issues, a hemoglobin closer to 8.0 to 8.5 would be preferred. Of course, if Cardiology recommends a higher range, we will defer to them. No need for any further workup in regards to assessment of bone marrow function at this time. We will continue to follow along, and our plan will be adjusted as the patient's hospital course proceeds. 2. Non-ST elevation myocardial infarction. Cardiology is on board. Continue management per their guidance. 3. Pulmonary edema. He continues to receive Lasix. Management per the primary team. 4. Possible gastrointestinal bleed. Gastroenterology is on board. Continue management per them. The patient will continue to need iron as long as he has bleeding. We can only provide supportive measures. Thank you for consulting us on Mr. Arreguin. We will continue to follow along and adjust our treatment plan per his hospital course. Dictated by DONOVAN Montero for Carl Fleming MD cc: Carl Flemign MD
[2018-09-29] MEDS: PROTONIX IV SCH ×2 (04:42→16:01)
[2018-09-29] MEDS: SYNTHROID PO SCH (06:11)
[2018-09-29] MEDS ORDERED: LEXISCAN ONE (08:40)
[2018-09-29 08:42] LABS: AGAP 15; BUN 22 mg/dL (8-22); CALCIUM 8.1 mg/dL (8.8-10.2); CHLORIDE 99 mmol/L (98-107); COSMO 284; CREATININE 0.9 mg/dL (0.7-1.2); ESTIMATED GFR > 60; GLUCOSE 113 mg/dL (70-104); POTASSIUM 3.8 mmol/L (3.5-5.1); SODIUM 140 mmol/L (136-145); TCO2 26 mmol/L (25-35)
--- NOTE | 2018-09-29 10:05 | PROGRESS NOTE ---
DATE: 09/29/2018 SUBJECTIVE: Overnight no acute events. The patient is to undergo nuclear medicine stress test today for cardiac risk stratification considering his persistently elevated troponin levels. OBJECTIVE: Denies chest pain, shortness of breath, palpitation, nausea, vomiting, or diarrhea. He has been tolerating a little bit of clear liquids yesterday, which he tolerated well. Has not had a bowel movement, though.Vital signs: Temperature 97.8 degrees, pulse 61 per minute, blood pressure 130/68, saturating 94% on room air. General: Does not appear in any acute distress. No conjunctival pallor. Oral cavity is moist. Lungs: Air entry bilaterally equal with bilateral infrascapular crackles better than yesterday. No wheeze or rhonchi. Heart: S1, S2 normal. Regular. No murmur, rub, or gallop. Abdomen: Soft, nontender. No jugular venous distention. No lower extremity edema. He has left-sided pacemaker in place. He has decreased bilateral radial pulses. LABS: No CBC today. BMP suggestive of resolution of hypokalemia. Magnesium of 2. Normal kidney function. Troponin of 0.9. No blood culture growth to date. IMAGING: No new imaging today. ASSESSMENT AND PLAN: 1. Non ST elevation myocardial infarction with history of CABG in 2012 and recent PCI in September,. Continue aspirin, Brilinta, a high dose statin, beta blockers. He is not on anticoagulation as he is on dual anti-platelet therapy and has recent episodes of severe anemia in September,, requiring blood transfusion. Limited echocardiogram had questionable inferior-posterior hypokinesia with ejection fraction of 50 to 55 percent with continuous rising trend of troponin. Nuclear medicine stress test has been planned according to Cardiology recommendation for risk stratification to see if he would need further diagnostic or intervention evaluation. Continue to monitor in ICU for hypotension and critical condition. 2. Bilateral pulmonary edema, though echocardiogram has mildly reduced ejection fraction of about 50 to 55 percent. Continue oxygenation through nasal cannula and intravenous Lasix. Continue albuterol ipratropium for acute hypoxic respiratory failure. This could be likely because of mild heart failure symptoms. 3. Anemia with history of melena with EGD showing gastritis in September,. Continue intravenous Protonix b.i.d. Follow up with CBC. She is now status post 2 units of PRBC. Hematology was consulted and patient received intravenous iron 2 doses. Continue multivitamin. 4. History of hypothyroidism. Continue home levothyroxine. 5. Hypokalemia, hypomagnesemia, resolved. DISPOSITION: The patient remains inside ICU considering continuously rising troponin trend. If he continues to better, my plan is to transfer him to [facility] later today or tomorrow. I discussed the plan of care with the patient's son. TIME SPENT: More than 30 minutes were spent in taking care of this patient. cc: Aleksandr Sebastian MD
[2018-09-29] MEDS: LASIX IV SCH ×2 (10:22→21:41)
[2018-09-29] MEDS: BRILINTA PO SCH ×2 (10:22→21:43)
[2018-09-29] MEDS: CENTRUM SILVER PO SCH (10:22)
[2018-09-29] MEDS: ALDACTONE PO SCH (10:23)
[2018-09-29] MEDS: TOPROL XL PO SCH ×2 (10:23→21:43)
[2018-09-29] MEDS: ASPIRIN EC PO SCH (10:23)
--- NOTE | 2018-09-29 11:26 | GASTROENTEROLOGY PROGRESS NOTE ---
DATE: 09/29/2018 SUBJECTIVE: No acute overnight events. The patient is afebrile. The patient is in Radiology currently undergoing nuclear stress tests for cardiac risk stratification. The patient was seen in the nuclear lab. He denies any chest pain, trouble breathing, abdominal pain, or further rectal bleeding. OBJECTIVE: Vitals: Temperature 97.8 degrees, heart rate 60, respiratory rate 28, blood pressure 134/64, O2 saturation of 94% on 2 L nasal cannula. General: The patient is awake, alert, and oriented, in no acute distress. HEENT: Sclerae anicteric. Moist mucous membranes. Neck: No JVD. No lymphadenopathy. Cardiac: Regular. Abdomen: Obese, soft, nontender. Extremities: No clubbing, cyanosis, or edema. Neurologic: Nonfocal. DIAGNOSTIC DATA: White count of 10.9, hemoglobin of 10.5 from 7.9 after 2 units of packed red blood cells, platelets of 271,000. Sodium 140, potassium 3.8, chloride 99, bicarb 26, BUN 22, creatinine 0.9, glucose of 113,000. Troponin of 0.995. ASSESSMENT AND PLAN: The patient is a 77-year-old gentleman admitted with non ST elevation RI. GI consulted for macrocytic anemia without overt GI blood loss. He is status post 2 units of packed red blood cells, currently undergoing cardiac risk stratification with nuclear stress test. For his anemia, we will continue supportive care, transfusion goal of 8 to 9 in the setting of RI. Hematology is following. The patient had EGD recently that showed antral gastritis. Colonoscopy 2 years ago was normal. Continue to trend hemoglobin and hematocrit daily. Continue PPI for GI prophylaxis. Appreciate Hematology recommendations. For his hypothyroidism, he is on levothyroxine. For his NSTEMI, continue dual anti-platelet therapy as per Cardiology team. We will follow with you. Please call with any questions or concerns.
[2018-09-29 12:37] LABS: HEMATOCRIT 35.9 % (42.0-52.0); HEMOGLOBIN 11.5 g/dL (14.0-18.0); MCH 31.1 PG (27-31); MPV 9.6 FL (7.4-10.4); RBC 3.7 XMIL (4.7-6.1); RDW 17.5 % (11.5-14.5); WBC 10.38 X1000 (4.8-10.8)
[2018-09-29 12:52] LABS: AGAP 15; BUN 22 mg/dL (8-22); CALCIUM 8.7 mg/dL (8.8-10.2); CHLORIDE 100 mmol/L (98-107); COSMO 288; ESTIMATED GFR > 60; GLUCOSE 153 mg/dL (70-104); POTASSIUM 3.4 mmol/L (3.5-5.1); SODIUM 141 mmol/L (136-145); TCO2 26 mmol/L (25-35)
[2018-09-29] MEDS: SODIUM CHLORIDE 0.9% INJ SCH (16:01)
[2018-09-29] MEDS: LIPITOR PO SCH (21:42)
[2018-09-30] MEDS: SODIUM CHLORIDE 0.9% INJ SCH (03:40)
[2018-09-30] MEDS: PROTONIX IV SCH ×2 (03:40→16:10)
[2018-09-30 05:57] LABS: BASO# 0.02 X1000 (0.0-0.2); BASO% 0.2 % (0.0-0.8); EOS# 0.37 X1000 (0.0-0.7); EOS% 3.4 % (0.0-10.0); HEMATOCRIT 35.8 % (42.0-52.0); HEMOGLOBIN 11.6 g/dL (14.0-18.0); IMM GRAN# 0.04 X1000 (0.0-0.04); IMM GRAN% 0.4 % (0.0-0.5); LYMPH# 1.78 X1000 (1.2-3.4); LYMPH% 16.3 % (20.5-51.1); MCH 30.9 PG (27-31); MCHC 32.4 g/dL (33-37); MCV 95.5 FL (81-99); MONO# 1.38 X1000 (0.11-0.59); MONO% 12.6 % (1.7-9.3); MPV 9.6 FL (7.4-10.4); NEUT# 7.33 X1000 (1.4-6.5); NEUT% 67.1 % (42.2-75.2); PLT 312 X1000 (130-400); RBC 3.75 XMIL (4.7-6.1); RDW 16.8 % (11.5-14.5); WBC 10.92 X1000 (4.8-10.8)
[2018-09-30] MEDS: SYNTHROID PO SCH (06:12)
[2018-09-30 06:27] LABS: AGAP 12; BUN 23 mg/dL (8-22); CALCIUM 8.8 mg/dL (8.8-10.2); CHLORIDE 98 mmol/L (98-107); COSMO 283; CREATININE 0.9 mg/dL (0.7-1.2); ESTIMATED GFR > 60; GLUCOSE 123 mg/dL (70-104); MAGNESIUM 1.9 mg/dL (1.5-2.7); POTASSIUM 3.4 mmol/L (3.5-5.1); SODIUM 139 mmol/L (136-145); TCO2 29 mmol/L (25-35)
[2018-09-30] MEDS ORDERED: MAGNESIUM SULFATE 2 GM/S.W.I. 2 GM/50 ML IVPB IV ONE (07:06)
[2018-09-30] MEDS: TOPROL XL PO SCH ×2 (08:52→21:04)
[2018-09-30] MEDS: LASIX IV SCH (08:53)
[2018-09-30] MEDS: ALDACTONE PO SCH (08:53)
[2018-09-30] MEDS: KLOR-CON PO SCH ×3 (08:53→16:05)
[2018-09-30] MEDS: CENTRUM SILVER PO SCH (08:53)
[2018-09-30] MEDS: ASPIRIN EC PO SCH (08:53)
[2018-09-30] MEDS: BRILINTA PO SCH ×2 (08:57→21:04)
--- NOTE | 2018-09-30 09:10 | PROGRESS NOTE ---
DATE: 09/30/2018 SUBJECTIVE: Overnight, he underwent nuclear medicine stress test. A few images will be taken today. He denies any chest pain or feeling short of breath. He has started feeling increasingly better discussed about his pulse, blood pressure and clinical condition, and answered all of his questions. OBJECTIVE: Vital Signs: Currently, vitals: Temperature of 98, pulse 69, blood pressure 100/46, saturating 99% on 2 L nasal cannula. General: On physical examination, does not appear in acute distress. HEENT: No conjunctival pallor. Oral cavity is moist. Lungs: Air entry bilaterally equal. Bilateral infrascapular crackles which are improving. No wheeze or rhonchi. Cardiac: Normal, regular. No murmur or gallop. No jugular venous distention. No lower extremity edema. He has left-sided pacemaker in place. He has decreased bilateral radial pulses. Abdomen: Soft, nontender. LABS: Stable hemoglobin, hematocrit, platelet is within acceptable range. Hypokalemia, being repleted. Elevated BUN, which is increasing since admission. Troponin yesterday was 0.99. Repeat troponin today is pending. Microbiology: No new microbiological data. IMAGING: No new imaging data. EKG performed on 28 of September had a ventricular paced rhythm. ASSESSMENT AND PLAN: 1. Non ST-elevation myocardial infarction with history of coronary artery bypass graft in 2011 and recent percutaneous coronary intervention in September,. Continue aspirin, Brilinta, high-dose statin, beta blockers. He is not on anticoagulation as he is on dual anti-platelet therapy and had recent episode of severe anemia in September 2018 requiring multiple blood transfusion. Echocardiogram had inferior posterior hypokinesia, questionable with ejection fraction of 50 to 55 percent and continuously rising trend of troponins. Nuclear medicine stress test is currently being carried out according to Cardiology recommendation for risk stratification. Continue ICU monitoring. 2. Bilateral pulmonary edema. The echocardiogram had mildly reduced ejection fraction of 50-55 percent. Continue oxygenation through nasal cannula. Decrease intravenous Lasix from b.i.d. to once a day. Considering rising BUN and the patient's improving breathing status. Continue albuterol ipratropium for acute hypoxic respiratory failure. His pulmonary edema is likely because of mild heart failure symptoms. 3. Anemia with history of melena with EGD showing antral gastritis in September 2018. Continue intravenous Protonix b.i.d. and frequent CBC monitoring. He is now status post 2 units of PRBC this admission. He also has received intravenous iron according to Hematology recommendation x2. 4. Continue levothyroxine for history of hypothyroidism. 5. Hypokalemia, being repleted. DISPOSITION: The patient remains in ICU for continuous cardiac monitoring and troponin trend. If his troponin starts dropping, my plan is to transfer him to [facility] later today. I called is son and had discussed with him about the plan previously. All of his questions have been answered. cc: Aleksandr Sebastian MD MTDD
--- NOTE | 2018-09-30 15:12 | Diag Imaging Result Document ---
PROCEDURE NAME: MYOCARDIAL PERF SCAN, STR/REST - 09/29/2018 This includes a 50-minutes, 4-hour, and 24-hours imaging acquisition. REQUESTING PHYSICIANS: Dr. Trevizo and Dr. Sebastian INDICATION: This is a 77-year-old male presenting with chest pain, suspected non-ST myocardial infarction, previous stent to the circumflex system. DESCRIPTION OF PROCEDURE: The patient came into the stress lab and received infusion of Lexiscan 0.4 mg, at peak infusion injected with thallium 201 , 4 mCi. Multiple tomographic views were immediately after exercise at 15 minutes, then at 4 hours, and then at 24 hours. SUMMARY OF ELECTROCARDIOGRAPHIC PORTION OF THE STUDY: Resting ECG shows activity of pacemaker, atrial sensed V paced, rate 63 beats per minute. Resting blood pressure is 117/55. During the protocol, the heart rate increased to 88 beats per minute. Blood pressure went up to 132/67. The patient reported no chest pain, shortness of breath or palpitations. ECG showed no changes. CONCLUSIONS: In summary, electrocardiographic response to infusion of Lexiscan is inconclusive due to the presence of pacemaker rhythm. SUMMARY OF MYOCARDIAL PERFUSION PORTION OF THE STUDY: Immediate postexercise images showed a moderately extensive, mild to moderate in severity lateral- inferolateral defect. There is also a mild to moderate basal anterior defect that is moderately extensive and a septal defect that is relatively limited and mild to moderate in severity. The 4-hour images showed improved perfusion in the lateral-inferolateral aspect of the left ventricle as well as the anterolateral segment and the basal septum. The 24-hour post stress showed significant viability of the entire lateral and inferolateral wall as well as good viability of the basal anterior wall and the septum. There is only a trivial degree of scar probably located in the basal segment of the anterior wall and also in the most distal inferior lateral aspect of the left ventricle. CONCLUSIONS: In summary, this stress thallium study shows: 1. Inconclusive electrocardiographic response to infusion of Lexiscan due to presence of pacemaker activity. 2. Abnormal poststress myocardial perfusion scan. There is a scintigraphic evidence of inducible ischemia involving the lateral and inferolateral wall of the left ventricle with excellent viability of the entire lateral and inferolateral wall of the left ventricle. 3. The patient may benefit from revascularization targeting that segment. 4. In addition, there is also excellent viability of the septum and only a limited area of scar appears to be present at the basal portion of the anterior wall of the left ventricle and the distal inferolateral portion, very limited. cc: MD Domingo Matute MD [facility]
--- NOTE | 2018-09-30 15:19 | CARDIOLOGY PROGRESS NOTE ---
DATE: 09/30/2018 CHIEF COMPLAINT: Shortness of breath and chest discomfort. SUBJECTIVE: Mr. Arreguin is feeling better today. He has completed his thallium stress with viability protocol. He ate his lunch well. He has no issues at this time. He is feeling definitely improved. OBJECTIVE: Blood pressure is 143/68, temperature 96.7, pulse 75, respirations 25. He is awake, alert, no distress. HEENT: Unremarkable. Chest sounds relatively clear to auscultation and percussion. Heart sounds are regular and rhythmic. I do not hear any gallop or murmur. His abdomen is nontender. Extremities showed no edema. Neurologic: Follows commands. Moves all 4 extremities. DIAGNOSTIC DATA: His troponin is still elevated at 1.16. Sodium is 139, potassium 3.4, BUN is 23, creatinine 0.9. His hemoglobin is 11.6, white cell count is 10,920. Most recent chest x-ray was done on 09/28/2018 and reported as improved pulmonary edema. IMPRESSION: 1. The patient presented with increasing dyspnea and pulmonary edema consistent with congestive heart failure and indication of [id number] myocardial infarction. Echocardiogram that was done on 09/27/2018 showed latest ejection fraction is in the range of 50% to 55%. 2. Status post pacemaker implantation and sick sinus syndrome. 3. Atrial fibrillation. 4. Gastrointestinal bleeding. 5. Hypertension. 6. Hyperlipidemia. 7. Prior coronary bypass procedure and stents to the circumflex system. RECOMMENDATIONS: At this time, we have reviewed his stress test which shows some degree of inducible ischemia of the inferolateral wall of the left ventricle with excellent viability of the entire myocardium. There is only a tiny area of scar in the basal anterior wall and also the inferolateral apical segment. This is very tiny. For the most part, his myocardium is well preserved. At this time, I would suggest to add Ranexa to his regimen 500 mg twice a day, probably put him on isosorbide dinitrate as tolerated, and we will consult with [facility] to determine whether or not it would be a good idea to re-intervene on his already stented circumflex system which unfortunately on review of the angiograms appears as if one of the branches of the circumflex was completely cut off or it was not revascularized at the time of the last intervention. Further advice will be forthcoming. The patient at this time appears to be stable. cc: Cash Spivey MD
[2018-09-30] MEDS: ISORDIL PO SCH (16:10)
[2018-09-30] MEDS ORDERED: VENOFER IV ONE (16:51)
[2018-09-30] MEDS ORDERED: NS IV ONE (16:51)
[2018-09-30] MEDS: LIPITOR PO SCH (21:03)
[2018-09-30] MEDS: RANEXA PO SCH (21:04)
[2018-10-01] MEDS: PROTONIX IV SCH ×2 (05:54→16:32)
[2018-10-01] MEDS: SYNTHROID PO SCH (06:11)
[2018-10-01] MEDS: LASIX IV SCH (06:15)
[2018-10-01 06:27] LABS: BASO# 0.03 X1000 (0.0-0.2); BASO% 0.3 % (0.0-0.8); EOS% 6.5 % (0.0-10.0); HEMATOCRIT 32.3 % (42.0-52.0); HEMOGLOBIN 10.3 g/dL (14.0-18.0); IMM GRAN# 0.04 X1000 (0.0-0.04); IMM GRAN% 0.4 % (0.0-0.5); LYMPH% 24.3 % (20.5-51.1); MCH 30.7 PG (27-31); MCHC 31.9 g/dL (33-37); MCV 96.1 FL (81-99); MONO# 1.34 X1000 (0.11-0.59); MONO% 12.5 % (1.7-9.3); MPV 9.6 FL (7.4-10.4); NEUT# 6.01 X1000 (1.4-6.5); PLT 327 X1000 (130-400); RBC 3.36 XMIL (4.7-6.1); RDW 16.5 % (11.5-14.5); WBC 10.72 X1000 (4.8-10.8)
[2018-10-01 06:53] LABS: AGAP 12; BUN 23 mg/dL (8-22); CALCIUM 8.1 mg/dL (8.8-10.2); CHLORIDE 101 mmol/L (98-107); COSMO 282; ESTIMATED GFR > 60; GLUCOSE 120 mg/dL (70-104); MAGNESIUM 2.1 mg/dL (1.5-2.7); POTASSIUM 4.4 mmol/L (3.5-5.1); SODIUM 139 mmol/L (136-145); TCO2 26 mmol/L (25-35)
--- NOTE | 2018-10-01 09:26 | CARDIOLOGY PROGRESS NOTE ---
DATE: 10/01/2018 CHIEF COMPLAINT: Chest discomfort and dyspnea. SUBJECTIVE: Mr. Arreguin had an uneventful night. No further complaints. OBJECTIVE: Vital Signs: Blood pressure 129/59, pulse 60, respirations 22, temperature 97.8. General: He is awake in no distress. HEENT: Unremarkable. Chest: Clear to auscultation and percussion. Heart: Heart sounds are regular and rhythmic. I do not hear any gallop or murmur. Abdomen: Nontender. Extremities: Showed no obvious edema. Neurologic: Follows commands. Moves all extremities. LABORATORY DATA: Blood work today, hemoglobin 10.3, hematocrit 32.3, white cell count 10,720. Sodium 139, potassium 4.4, BUN 26, creatinine 1.0. IMPRESSION: 1. A patient who presented with increasing dyspnea, non-ST myocardial infarction. 2. Abnormal myocardial perfusion stress test suggesting inducible ischemia on inferolateral and lateral wall of left ventricle with good viability. 3. A patient with multivessel coronary heart disease, previous coronary intervention. 4. A patient with history of atrial fibrillation. 5. History of gastrointestinal bleeding. 6. History of hyperlipidemia. RECOMMENDATIONS: At this time, we will continue as we are doing with maximal medical therapy. We will see how he progresses. We will contact [facility] in the morning and discuss the case with validation architect to see if he may benefit from repeat cardiac catheterization and intervention. Otherwise we will just be watching him over here in the hospital. cc: Cash Spivey MD
[2018-10-01] MEDS: ALDACTONE PO SCH (09:53)
[2018-10-01] MEDS: RANEXA PO SCH ×2 (09:53→20:57)
[2018-10-01] MEDS: ASPIRIN EC PO SCH (09:53)
[2018-10-01] MEDS: CENTRUM SILVER PO SCH (09:54)
[2018-10-01] MEDS: ISORDIL PO SCH ×3 (09:54→16:32)
[2018-10-01] MEDS: TOPROL XL PO SCH ×2 (09:54→20:56)
--- NOTE | 2018-10-01 09:54 | PROGRESS NOTE ---
DATE: 10/01/2018 SUBJECTIVE: Overnight, no acute events. His troponin peaked at 1.1. He did not have any chest pain or shortness of breath episode. Nuclear medicine stress test was abnormal with inferolateral and lateral ischemia, and the possible plan is to transfer him to [facility] on Tuesday if there is a bed availability there. The patient is sitting in the bed. Denies chest pain, shortness of breath. He is feeling much better. Denies palpitation. Denies nausea, vomiting, abdominal pain. We discussed about his findings of chronically abnormal nuclear medicine stress test and need for possible intervention. I answered all of his questions. OBJECTIVE: Vital Signs: Currently temperature of 97.8, pulse 60 per minute, blood pressure 102/58, saturating 98% on 2 L nasal cannula. General: Does not appear in any acute distress. HEENT: Oral cavity is moist. Lungs: Air entry bilaterally equal, significantly decreased bilateral infrascapular crackles. No wheeze or rhonchi. Heart: S1, S2 normal. No murmur, rub, or gallop. No jugular venous distention. No lower extremity edema. He has a left-sided pacemaker in place. He has decreased bilateral radialis pulses. Abdomen: Soft, nontender. Neurologic: Alert, oriented x3. IMAGING AND LABORATORY DATA: Labs suggestive of no leukocytosis. Stable hemoglobin, hematocrit, and platelet count. Normal electrolytes, with resolution of hypokalemia. Normal kidney function with slight elevation of BUN and creatinine from baseline. Troponin peaked at 1.1. No new microbiological data, with no blood culture growth to date. Myocardial perfusion imaging had suggested inducible ischemia in the inferolateral wall with a small scar in the apical region. ASSESSMENT AND PLAN: 1. Non ST-elevation myocardial infarction with history of coronary artery bypass graft in 2011 and recent percutaneous coronary intervention in the circumflex region in 09/2018. Continue aspirin, Brilinta, high-dose statin, beta blockers. He is not on anticoagulation because of recent suspected gastrointestinal bleed when he was on anticoagulation, requiring blood transfusion on multiple occasions. Echocardiogram and nuclear medicine stress test are now suggestive of inferolateral wall inducible ischemia. Cardiology on board. Plan is to discuss his case with [facility], and possible transfer for intervention tomorrow or early next week. Continue to monitor in intensive care unit. The patient has been started on ranolazine and isosorbide in addition. 2. Acute congestive heart failure exacerbation leading to bilateral pulmonary edema with mild systolic heart failure exacerbation. Ejection fraction of 50% to 55%. Non ST-elevation myocardial infarction could have contributed to it as well. Continue oxygenation through nasal cannula. Change intravenous to oral Lasix, his home dose. His breathing has significantly improved. Continue spironolactone, beta blockers. In the future, will add angiotensin-converting enzyme inhibitors or angiotensin-receptor blockers as tolerated. 3. Anemia with history of melena, with esophagogastroduodenoscopy showing antral gastritis in 09/2018, requiring blood transfusion. Continue intravenous Protonix twice daily and CBC monitoring. He is status post 2 packed red blood cells transfusion this admission, and intravenous iron x2, according to Hematology recommendations. 4. Continue hypothyroidism, levothyroxine therapy. 5. Disposition. The patient remains in intensive care unit for close cardiac monitoring. Plan is to possibly transfer him to [facility] after discussing with Intervention Cardiology there early next week. Plan of care was discussed with him. All of his questions have been answered. cc: Aleksandr Sebastian MD
[2018-10-01] MEDS: BRILINTA PO SCH ×2 (09:55→20:56)
[2018-10-01] MEDS: LIPITOR PO SCH (20:56)
[2018-10-02] MEDS: PROTONIX IV SCH (04:42)
[2018-10-02 05:27] LABS: BASO# 0.02 X1000 (0.0-0.2); BASO% 0.2 % (0.0-0.8); EOS# 0.69 X1000 (0.0-0.7); EOS% 6.5 % (0.0-10.0); HEMATOCRIT 30.2 % (42.0-52.0); HEMOGLOBIN 9.9 g/dL (14.0-18.0); IMM GRAN# 0.05 X1000 (0.0-0.04); IMM GRAN% 0.5 % (0.0-0.5); LYMPH# 2.21 X1000 (1.2-3.4); LYMPH% 20.9 % (20.5-51.1); MCH 31.3 PG (27-31); MCHC 32.8 g/dL (33-37); MCV 95.6 FL (81-99); MONO# 1.15 X1000 (0.11-0.59); MONO% 10.9 % (1.7-9.3); MPV 9.6 FL (7.4-10.4); NEUT# 6.43 X1000 (1.4-6.5); PLT 300 X1000 (130-400); RBC 3.16 XMIL (4.7-6.1); RDW 16.3 % (11.5-14.5); WBC 10.55 X1000 (4.8-10.8)
[2018-10-02] MEDS: SYNTHROID PO SCH (06:06)
[2018-10-02 06:28] LABS: AGAP 11; BUN 26 mg/dL (8-22); CALCIUM 8.8 mg/dL (8.8-10.2); CHLORIDE 99 mmol/L (98-107); COSMO 278; ESTIMATED GFR > 60; GLUCOSE 115 mg/dL (70-104); MAGNESIUM 2.1 mg/dL (1.5-2.7); POTASSIUM 3.7 mmol/L (3.5-5.1); SODIUM 136 mmol/L (136-145); TCO2 26 mmol/L (25-35)
--- NOTE | 2018-10-02 07:13 | EKG Report ---
Test Performed on : 10/02/2018 06:54:54 AM Test Reason : nstemi Blood Pressure : / mmHG Vent. Rate : 060 BPM Atrial Rate : 060 BPM P-R Int : 174 ms QRS Dur : 192 ms QT Int : 548 ms P-R-T Axes : 000 -56 127 degrees QTc Int : 548 ms AV sequential or dual chamber electronic pacemaker Left axis deviation Abnormal ECG When compared with ECG of 01-OCT-2018 06:53, (Unconfirmed) No significant change was found Confirmed by Juanita APPLE, Eliseo Pearson ([id number]) on 10/02/2018 5:33:40 PM
--- NOTE | 2018-10-02 07:26 | EKG Report ---
Test Performed on : 09/30/2018 06:50:55 AM Test Reason : nstemi Blood Pressure : / mmHG Vent. Rate : 067 BPM Atrial Rate : 058 BPM P-R Int : 000 ms QRS Dur : 190 ms QT Int : 526 ms P-R-T Axes : 000 -64 110 degrees QTc Int : 555 ms AV sequential or dual chamber electronic pacemaker Abnormal ECG When compared with ECG of 28-SEP-2018 07:03, Vent. rate has increased BY 7 BPM Confirmed by Juanita APPLE, Eliseo Pearson ([id number]) on 10/02/2018 8:27:46 AM
--- NOTE | 2018-10-02 07:49 | EKG Report ---
Test Performed on : 09/30/2018 11:00:58 AM Test Reason : Elevated troponins Blood Pressure : / mmHG Vent. Rate : 078 BPM Atrial Rate : 078 BPM P-R Int : 172 ms QRS Dur : 190 ms QT Int : 500 ms P-R-T Axes : 003 -53 103 degrees QTc Int : 570 ms AV sequential or dual chamber electronic pacemaker Left axis deviation Nonspecific intraventricular block Abnormal ECG When compared with ECG of 30-SEP-2018 06:50, (Unconfirmed) No significant change was found Confirmed by Juanita APPLE, Eliseo Pearson ([id number]) on 10/02/2018 1:12:00 PM
--- NOTE | 2018-10-02 07:53 | EKG Report ---
Test Performed on : 10/01/2018 06:53:17 AM Test Reason : nstemi Blood Pressure : / mmHG Vent. Rate : 060 BPM Atrial Rate : 060 BPM P-R Int : 170 ms QRS Dur : 184 ms QT Int : 536 ms P-R-T Axes : 000 -58 129 degrees QTc Int : 536 ms AV sequential or dual chamber electronic pacemaker Left axis deviation Abnormal ECG When compared with ECG of 30-SEP-2018 11:00, (Unconfirmed) No significant change was found Confirmed by Juanita APPLE, Eliseo Pearson ([id number]) on 10/02/2018 5:27:29 PM
[2018-10-02] MEDS ORDERED: LASIX PO SCH (09:00)
[2018-10-02] MEDS: RANEXA PO SCH (09:21)
[2018-10-02] MEDS: BRILINTA PO SCH (09:21)
[2018-10-02] MEDS: KLOR-CON PO SCH ×2 (09:21→12:29)
[2018-10-02] MEDS: ISORDIL PO SCH ×2 (09:21→12:29)
[2018-10-02] MEDS: TOPROL XL PO SCH (09:21)
[2018-10-02] MEDS: ALDACTONE PO SCH (09:21)
[2018-10-02] MEDS: ASPIRIN EC PO SCH (09:21)
[2018-10-02] MEDS: CENTRUM SILVER PO SCH (09:22)
--- NOTE | 2018-10-02 10:01 | PROGRESS NOTE ---
DATE: 10/02/2018 INTERVAL EVENTS: No acute interval events. The patient's vitals were within acceptable range. The patient was lying down in the bed most of the time. SUBJECTIVE: Patient denies any chest pain, shortness of breath, nausea, vomiting, abdominal pain. He has been eating okay. We discussed about abnormal stress test and possible transfer to [facility] pending cardiology consult. I talked with his son on phone today and informed him as well. OBJECTIVE: Current vitals: Temperature 97.9 degrees, pulse 60 per minute, blood pressure 110/55, saturating 96% on 2 L nasal cannula. General: Does not appear in any acute distress. Oral cavity: Moist. Lungs: Air entry bilaterally equal. Inspiratory crackles bilateral infrascapular region. No wheeze or rhonchi. Heart: S1 and S2 normal. No murmur, rub, or gallop. He has left-sided pacemaker in place. No lower extremity edema. Abdomen: Soft, nontender. Neurologic: Alert and oriented x3. He has decreased radial pulses bilaterally. Input and output suggests -400 mL yesterday. Since admission, he is -4.6 L. LABS: Suggestive of no leukocytosis, stable hemoglobin, hematocrit, and platelet count. Electrolytes in acceptable range. Troponins had peaked to 1.16. No new microbiological data. Myocardial perfusion scan was noted previously. No other imaging. ASSESSMENT AND PLAN: 1. [id number] myocardial infarction with history of coronary artery bypass graft in 2011 and recent percutaneous coronary intervention in circumflex region in September 2018. Continue aspirin, Brilinta, high-dose statin, beta-raisa. He is not on anticoagulation because of recent suspected gastrointestinal bleed, when he was on anticoagulation, requiring blood transfusion on multiple occasions in September 2018. Echocardiogram nuclear medicine stress test suggestive of inferolateral wall inducible ischemia. Cardiology on board, and his case is to be discussed with [facility]iology today. Will appreciate Cardiology's recommendation about transfer to [facility]. Continue ranolazine, isosorbide. 2. Acute congestive heart failure exacerbation, systolic leading to bilateral pulmonary edema with ejection fraction of 50%. [id number] myocardial infarction could have contributed to it. Continue oxygenation and oral Lasix. Continue spironolactone, beta-blockers in future. We will appreciate cardiology's recommendation about starting CARLYN inhibitors or angiotensin-receptor blockers. 3. Anemia with history of melena with esophagogastroduodenoscopy showing antral gastritis in September 2018 requiring blood transfusions. Continue intravenous Protonix, multivitamins with minerals. He is status post intravenous iron 2 doses and status post 2 packed red blood cells during this admission. 4. Continue hypothyroid levothyroxine for history of hypothyroidism. 5. Disposition. I will transfer patient to [facility] pending further Cardiology recommendation about transfer to [facility]. Depending on that, I will also consider having physical therapy evaluation. Plan of care discussed with the patient and his son on phone. All of their questions have been answered satisfactorily. cc: Aleksandr Sebastian MD
[2018-10-02 12:09] VITALS: BP 124/59
--- NOTE | 2018-10-02 13:03 | Diag Imaging Result Doc PS360 ---
EXAM: CHEST-PORTABLE HISTORY: dyspnea, effusions TECHNIQUE: Portable chest single view COMPARISON: 09/28/2018 FINDINGS: The lungs are well expanded. The heart is mildly prominent sternal wires are present. There is a left-sided pacemaker. The vessels are not distended. There are no infiltrates. No effusion identified. IMPRESSION: Mildly prominent heart, but no pulmonary edema and no pleural effusions identified. Electronically signed by Nish Urrutia 10/02/2018 1:01 PM
--- NOTE | 2018-10-03 05:00 | DISCHARGE SUMMARY ---
ADMISSION DATE: 09/27/2018 DISCHARGE DATE: 10/02/2018 DISCHARGE DISPOSITION: Transferred to [facility]. DISCHARGE CONDITION: Stable. DISCHARGE DIAGNOSES: 1. Non-ST elevation myocardial infarction. 2. Acute systolic congestive heart failure exacerbation. 3. Anemia due to acute blood loss. 4. Leukocytosis, unspecified. 5. Hypokalemia. 6. Elevated troponins which peaked at 1.16. 7. Abnormal nuclear medicine stress test. OTHER DIAGNOSES: 1. History of coronary artery bypass graft in 2011. 2. Percutaneous intervention in the left circumflex region in September 2018. 3. Congestive heart failure with ejection fraction of 50%. 4. Anemia due to acute blood loss and history of melena in September 2018 requiring multiple blood transfusion. 5. Esophagogastroduodenoscopy findings of antral gastritis without any active bleed in September 2018. 6. Hypothyroidism. DISCHARGE MEDICATIONS: 1. Nitroglycerin 0.4 mg sublingual q.5 minutes p.r.n. for chest pain. 2. Aspirin 81 mg daily. 3. Atorvastatin 80 mg at nighttime. 4. Lasix 80 mg daily. 5. Combivent Respimat inhaler 1 inhaled q.4-6 hours p.r.n. 6. Isosorbide dinitrate 10 mg t.i.d. 7. Levothyroxine 50 mcg with meals. 8. Metoprolol succinate extended-release 25 mg b.i.d. 9. Centrum Silver 1 tablet daily. 10. Pantoprazole 40 mg IV b.i.d. 11. Ranolazine 500 mg b.i.d. 12. Spironolactone 12.5 mg daily. 13. Ticagrelor 90 mg b.i.d. VITAL SIGNS: At the time of discharge, temperature 96.9 degrees, pulse 61 per minute, blood pressure 124/59, saturating 95% on 2 L nasal cannula. PHYSICAL EXAMINATION: General: Does not appear in any acute distress. HEENT: Oral cavity is moist. No pallor, cyanosis, clubbing, or icterus. Respiratory: Air entry bilaterally equal. Mild inspiratory crackles, bilateral infrascapular region. No wheeze or rhonchi. Cardiovascular: S1, S2 normal. Regular. No rub or gallop or murmur. Abdomen: Soft, nontender. Extremities: No lower extremity edema. He has decreased bilateral radial pulses. HOSPITAL COURSE SUMMARY: Mr. Arreguin is a 77-year-old man with the above-mentioned past medical history and a recent non-Q wave myocardial infarction on 09/07/2018 requiring PCI at [facility] and recent admission on September 22 because of melena requiring blood transfusion at which point his Eliquis was stopped. He was only continued on his dual anti- platelet therapy. Came in with complaints of intermittent episodes of chest pain, retrosternal, with dyspnea and weakness. He also had elevated troponins and EKG was concerning for non-ST elevation myocardial infarction. He was only continued on dual anti-platelet therapy and no anticoagulation considering recent episode of severe anemia requiring blood transfusion and was managed in the ICU. Nuclear medicine stress test performed had suggested inferolateral wall inducible ischemia for which he would be transferred to [facility] after premium card cancellation clerk had discussed the case with [facility] and it was thought that he would benefit from intervention. Meanwhile, he will be continued on dual anti-platelet high-dose statin, home dose of Lasix, ranolazine, isosorbide, spironolactone, beta blockers. More than 30 minutes were spent discharging this patient. Plan of care was discussed with the patient and the patient's son who is the surrogate decision maker. All of their questions have been answered. cc: Aleksandr Sebastian MD
== END 2018-10-02 13:30 | disposition short-term general hospital (02) | DRG 280 ==
LOC: ED 03:06 → ICU 11:48 → SUATTDRO 11:48 → ICU 10-02 14:05
PROVIDERS: ATTEND Internal Medicine
CPT/HCPCS: 36430; 71010; 71045; 78452; 80048; 80053; 81001; 82550; 82553; 82607; 82728; 82746; 82805; 83540; 83550; 83735; 83880; 84484; 85025; 85027; 85610; 85730; 86850; 86900; 86901; 86920; 87040; 93005; 93010; 93017; 93306; 93308; 94640; 94761; 96365; 96375; 96376; 99285; A9270; A9505; C8924; C9113; J0696; J1756; J1940; J2785; J3475; J3480; J7050; P9016; Q9957; S0164